=== PATIENT | female | born 1950 | race Caucasian/White ===

== ENCOUNTER 2018-09-04 15:09 | Inpatient (IN) | payer OTHER ==
--- OUTSIDE RECORDS SUMMARY | 2018-09-04 15:12 | XMS REPORT | Clinical Summary ---
:1950 Author Organization [facility] Address [address] [place] [address] Care Team Providers Name Role Phone Lindsey Diaz CHIEF DEPUTY-C Primary Care Provider Allergies Active Allergy Reactions Severity Noted Date Comments Sulfamethoxazole-Trimethoprim 01/25/2012 Causes headaches Medications Medication Sig Dispensed Refills Start Date End Date Status cholecalciferol, Take 1,000 0 Active vitamin D3, Units by (VITAMIN D3) 1,000 mouth daily. unit tablet sertraline (ZOLOFT) Take 25 mg by 0 Active 25 MG tablet mouth daily. omeprazole Take 1 30 capsule 11 05/02/2018 04/19/2019 Active (PriLOSEC) 40 MG capsule (40 capsuleIndications: mg total) by Esophagitis mouth daily for 352 days. sertraline (ZOLOFT) Take 25 mg by 0 02/14/2018 Discontinued 25 MG tablet mouth daily. celecoxib Take 200 mg 0 04/19/2018 Discontinued (CeleBREX) 200 MG by mouth as capsule needed. vitamin B complex Take 1 0 11/08/2017 Discontinued (B COMPLEX 1 ORAL) capsule by mouth daily. shark cartilage Take 1 tablet 0 11/08/2017 Discontinued (SHARK FIN by mouth CARTILAGE) 500 mg daily. capsule GLUCOSAMINE-CONDROI Take by mouth 0 11/08/2017 Discontinued [id number] ORAL daily. omeprazole Take 1 30 capsule 3 12/16/2017 05/02/2018 Discontinued (PriLOSEC) 40 MG capsule (40 capsuleIndications: mg total) by Esophagitis mouth daily. vortioxetine Take 1 tablet 0 04/19/2018 Discontinued (TRINTELLIX) 10 mg by mouth tablet daily. Active Problems No known active problems Encounters Date Type Specialty Care Team Description 05/02/2018 Orders Only Gastroenterology Edie Sierra, Esophagitis INVENTORY AUDITOR 05/02/2018 Telephone Gastroenterology Joyce Christopher, SERGO 04/19/2018 Office Visit Gastroenterology Willa, Status post dilatation of esophageal stricture (Primary Dx); MD Be Gastroesophageal reflux disease with esophagitis 03/01/2018 Hospital Encounter Radiology Willa, Epigastric pain MD Be 02/16/2018 Telephone Gastroenterology Edie Sierra, INVENTORY AUDITOR 02/14/2018 Office Visit Gastroenterology Willa, Epigastric pain (Primary Dx); MD Be S/P dilatation of esophageal stricture 02/02/2018 Surgery Gastroenterology Willa EGD WITH DILATION MD Be 02/02/2018 Anesthesia Event Gastroenterology Joel Padilla MD 02/02/2018 Hospital Encounter GastroenterBe Kaplan MD 01/13/2018 Anesthesia Event GastroenterJoel Saleh MD 01/13/2018 Surgery Gastroenterology Willa EGD W/ DILATION MD Be 01/13/2018 Hospital Encounter GastroenterBe Kaplan MD 12/16/2017 Telephone Gastroenterology Edie Sierra, Esophagitis (Primary Dx) INVENTORY AUDITOR 12/16/2017 Telephone Gastroenterology Edie Sierra, INVENTORY AUDITOR 12/08/2017 Surgery Gastroenterology Willa EDG W/ FLUOROSCOPY AND MD Be DILATION and bx 12/08/2017 Anesthesia Event Gastroenterology Lazaro Kirk MD 12/08/2017 Hospital Encounter Gastroenterosvaldo Crouch, Benign esophageal MD Be stricture 11/25/2017 Telephone GastroenterEdie Collins, INVENTORY AUDITOR 11/24/2017 Hospital Encounter Radiology Willa, Ulcerative esophagitis MD Be 11/21/2017 Orders Only Gastroenterology Arturo, Ulcerative esophagitis AL Baptiste (Primary Dx) 11/17/2017 Telephone Be Landry MD 11/15/2017 Lab Lab Be Crouch MD 11/08/2017 Office Visit Gastroenterology Willa, Iron deficiency anemia, MD Be unspecified iron deficiency anemia type (Primary Dx) after 09/03/2017 Family History Relation Name Status Comments Father Mother Social History Tobacco Use Types Packs/Day Years Used Date Never Smoker Smokeless Tobacco: Never Used Alcohol Use Drinks/Week oz/Week Comments No Sex Assigned at Date Recorded Not on file Job Start Date Occupation Industry Not on file Not on file Not on file Travel History Travel Start Travel End No recent travel history available. Last Filed Vital Signs Vital Sign Reading Time Taken Blood Pressure 174/91 04/19/2018 3:07 PM CDT Pulse 79 04/19/2018 3:07 PM CDT Temperature 36.7 C (98.1 F) 04/19/2018 3:07 PM CDT Respiratory Rate 17 02/02/2018 2:35 PM CDT Oxygen Saturation 95% 02/02/2018 2:35 PM CDT Inhaled Oxygen Concentration - - Weight 84.8 kg (187 lb) 04/19/2018 3:07 PM CDT Height 160 cm (5' 3") 04/19/2018 3:07 PM CDT Body Mass Index 33.13 04/19/2018 3:07 PM CDT Plan of Treatment Health Maintenance Due Date Last Done Comments BREAST CANCER SCREENING 02/19/1998 SHINGLES VACCINES (#1) 02/19/1998 65+ PNEUMOCOCCAL VACCINE (1 of 2 - PCV13) 02/19/2013 PNEUMOCOCCAL POLYSACCHARIDE VACCINE AGE 65 AND OVER 02/19/2013 INFLUENZA VACCINE 01/18/2018 COLON CANCER SCREENING 11/15/2022 11/15/2017 Implants Implanted Type Area Ornamental Metalwork Designer Device Shelf Model / Identifier Expiration Serial / Date Lot Dilator Baln Fxdwr [id number] 6-7-8mm Cre - [id number] Cardiovascular N/A: MICROVASIVE [id number] / Implanted: 12/08/2017 (Quantity not on file) Implants N/A / Dilator Baln Fxdwr [id number] 8-9-10mm Cre - [id number] Surgical N/A: BS ENDOSCOPY [id number] / Implanted: 12/08/2017 (Quantity not on file) Implants; N/A / Expanders; Extenders; Surgical Wires Dilator Baln Fxdwr [id number] 10-11-12mm Cre - [id number] Surgical N/A: BSC ENDOSCOPY [id number] / Implanted: 01/13/2018 (Quantity not on file) Implants; N/A / Expanders; Extenders; Surgical Wires Procedures Procedure Name Priority Date/Time Associated Comments Diagnosis CT ABDOMEN PELVIS W CONTRAST Routine 03/01/2018 Epigastric pain Results for 2:42 PM CDT this procedure are in the results section. ESOPHAGOGASTRODUODENOSCOPY (EGD) 02/02/2018 Esophageal 1:00 PM CDT obstruction ESOPHAGOGASTRODUODENOSCOPY (EGD) 01/13/2018 Esophageal 11:00 AM CDT obstruction Dysphagia SURGICAL PATHOLOGY REQUEST Routine 12/08/2017 Results for 4:11 PM CDT this procedure are in the results section. FL < 1 HOUR Routine 12/08/2017 Benign Results for 2:43 PM CDT esophageal this procedure stricture are in the results section. ESOPHAGOGASTRODUODENOSCOPY (EGD) 12/08/2017 Benign 2:00 PM CDT esophageal stricture FL UPPER GI AND SMALL BOWEL Routine 11/24/2017 Ulcerative Results for 11:26 AM CDT esophagitis this procedure are in the results section. SURGICAL PATHOLOGY REQUEST Routine 11/15/2017 Results for 12:26 PM CDT this procedure are in the results section. after 09/03/[address] Abdomen Pelvis W Contrast (03/01/2018 2:42 PM CDT) Narrative Performed At CT ABDOMEN PELVIS W CONTRAST [facility] CLINICAL INDICATION: R10.13 Epigastric pain, epigastric pains p gastric bypass TECHNIQUE:Multidetector CT imaging of the abdomen and pelvis was performed following the intravenous administration of iodinated contrast with automated exposure control and/or iterative reconstruction techniques to radiation dose. COMPARISON:None FINDINGS: LUNG BASES:Scattered calcified granulomas at lung bases. Heart is mildly enlarged. LIVER:Steatosis without distinct mass. BILIARY:Cholecystectomy is noted with dilatation of the common bile duct to 10 mm but without choledocholithiasis or transition and apparent. SPLEEN:Normal. PANCREAS:Pancreas is mildly atrophic without mass or ductal dilatation. ADRENALS:Normal. KIDNEYS:1.6 cm simple cyst is noted in the interpolar left kidney. GI:There is mild thickening of the distal esophagus consistent with esophagitis with mild paraesophageal infiltration. Changes of gastric bypass are noted with small amount of fluid and gas noted in the gastric remnant. Efferent gastric bypass limb is unremarkable and there are enteric sutures noted in the left upper quadrant. Small bowel loops are normal in caliber without focal wall thickening or findings for leak. Colonic diverticulosis is present without diverticulitis. Appendix is not visualized. VASCULAR:Mild vascular ectasia and atherosclerosis. LYMPH NODES:No enlarged lymph nodes in the abdomen or pelvis. PELVIS:No lymphadenopathy or abnormal fluid collection.Uterus and notable for a 1.7 cm fluid density cystic lesion in the left ovary of indeterminate significance. Consider ultrasound follow-up. BONES:Mild to moderate spondylosis is present. OTHER: IMPRESSION: 1. Prominent thickening of the distal esophagus consistent with esophagitis. Consider endoscopic or fluoroscopic follow-up. 2. Status post gastric bypass surgery without findings for complication. 3. Indeterminate 1.7 cm left ovarian cystic lesions; ultrasound follow-up recommended. 4. Other incidental lencho findings as described including mild hepatic steatosis, left renal cyst, spondylosis, diverticulosis and other findings as detailed. Thank you for allowing us to participate in the care of your patient. [facility]-[id number] Procedure Note [facility], Radiology Results Incoming - 03/01/2018 3:[address] ABDOMEN PELVIS W CONTRAST CLINICAL INDICATION: R10.13 Epigastric pain, epigastric pain s p gastric bypass TECHNIQUE: Multidetector CT imaging of the abdomen and pelvis was performed following the intravenous administration of iodinated contrast with automated exposure control and/or iterative reconstruction techniques to radiation dose. COMPARISON: None FINDINGS: LUNG BASES: Scattered calcified granulomas at lung bases. Heart is mildly enlarged. LIVER: Steatosis without distinct mass. BILIARY: Cholecystectomy is noted with dilatation of the common bile duct to 10 mm but without choledocholithiasis or transition and apparent. SPLEEN: Normal. PANCREAS: Pancreas is mildly atrophic without mass or ductal dilatation. ADRENALS: Normal. KIDNEYS: 1.6 cm simple cyst is noted in the interpolar left kidney. GI: There is mild thickening of the distal esophagus consistent with esophagitis with mild paraesophageal infiltration. Changes of gastric bypass are noted with small amount of fluid and gas noted in the gastric remnant. Efferent gastric bypass limb is unremarkable and there are enteric sutures noted in the left upper quadrant. Small bowel loops are normal in caliber without focal wall thickening or findings for leak. Colonic diverticulosis is present without diverticulitis. Appendix is not visualized. VASCULAR: Mild vascular ectasia and atherosclerosis. LYMPH NODES: No enlarged lymph nodes in the abdomen or pelvis. PELVIS: No lymphadenopathy or abnormal fluid collection. Uterus and notable for a 1.7 cm fluid density cystic lesion in the left ovary of indeterminate significance. Consider ultrasound follow-up. BONES: Mild to moderate spondylosis is present. OTHER: IMPRESSION: 1. Prominent thickening of the distal esophagus consistent with esophagitis. Consider endoscopic or fluoroscopic follow-up. 2. Status post gastric bypass surgery without findings for complication. 3. Indeterminate 1.7 cm left ovarian cystic lesions; ultrasound follow-up recommended. 4. Other incidental lencho findings as described including mild hepatic steatosis , left renal cyst, spondylosis, diverticulosis and other findings as detailed. Thank you for allowing us to participate in the care of your patient. [facility]-[id number] Performing Organization Address City/[facility]/Zipcode Phone Number [facility] [address] [place] [address] Surgical pathology request (12/08/2017 4:11 PM CDT)Only the most recent of2 resultswithin the time period is included. [facility] DEPARTMENT OF PATHOLOGY AND GENOMIC MEDICINE Surgical pathology report See link below for PDF [facility] DEPARTMENT OF Lab Report PATHOLOGY AND GENOMIC MEDICINE Result status This is Final Report to [facility] DEPARTMENT OF [id number] PATHOLOGY AND GENOMIC MEDICINE Performing Organization Address [facility] Phone Number [facility] DEPARTMENT OF PATHOLOGY AND [address] [place] [address] GENOMIC MEDICINE FL < 1 Hour (12/08/2017 2:43 PM CDT) Narrative Performed At EXAMINATION:FL 1 HOUR [facility] CLINICAL HISTORY:intraoperative IMPRESSION: Fluoroscopy was provided. No radiologist present.Please see procedure report for discussion of procedure, findings. [facility]-[id number] Procedure Note Interface, Radiology Results Incoming - 12/08/2017 3:12 PM CDT EXAMINATION: FL 1 HOUR CLINICAL HISTORY: intraoperative IMPRESSION: Fluoroscopy was provided. No radiologist present. Please see procedure report for discussion of procedure, findings. [facility]-[id number] Performing Organization Address City/[facility] Phone Number [facility] [address] [place] [address] [place] Upper GI and Small Bowel Series (11/24/2017 11:26 AM CDT) Narrative Performed At EXAMINATION:FL UPPER GI AND SMALL BOWEL [facility] CLINICAL HISTORY:K22.10 Ulcer of esophagus without bleeding, Ulcerative esophagitis. COMPARISON:None. TECHNIQUE:UPPER GI SERIES AND SMALL BOWEL FOLLOW-THROUGH was performed with effervescent granules and barium. FLUOROSCOPIC TIME:2 minutes, 38 images IMPRESSION: Esophagus:And esophageal stricture of approximately 75% is present at the GE junction. It is approximately 2 cm in length. The esophagus proximal to this area is diffusely dilated with tertiary contractions present compatible with esophageal dysmotility. Mucosal thickening is present distally suggestive of esophagitis. No definite focal masses are present Stomach:Postoperative changes involving the stomach compatible with a gastric bypass. Anastomosis is patent. No masses or strictures present. No extravasation. Proximal small bowel is not dilated. No masses or strictures present [id number] Procedure Note Interface, Radiology Results Incoming - 11/24/2017 1:03 PM CDT EXAMINATION: FL UPPER GI AND SMALL BOWEL CLINICAL HISTORY: K22.10 Ulcer of esophagus without bleeding, Ulcerative esophagitis. COMPARISON: None. TECHNIQUE: UPPER GI SERIES AND SMALL BOWEL FOLLOW-THROUGH was performed with effervescent granules and barium. FLUOROSCOPIC TIME: 2 minutes, 38 images IMPRESSION: Esophagus: And esophageal stricture of approximately 75% is present at the GE junction. It is approximately 2 cm in length. The esophagus proximal to this area is diffusely dilated with tertiary contractions present compatible with esophageal dysmotility. Mucosal thickening is present distally suggestive of esophagitis. No definite focal masses are present Stomach: Postoperative changes involving the stomach compatible with a gastric bypass. Anastomosis is patent. No masses or strictures present. No extravasation. Proximal small bowel is not dilated. No masses or strictures present [id number] Performing Organization Address City/State/Zipcode Phone Number [facility] [address] [place] [address] after 09/03/2017 Insurance Payer Benefit Plan / Group Subscriber ID Type Phone Address MEDICARE MEDICARE PART A AND B xxxxxxxxxx Medicare [facility] xxxxxxxxxx Commercial INSURANCE INSURANCE (Home) [place] [address] Advance Directives Patient has advance care planning documents on file. For more information, please contact:[facility] [address] [place] [address]
--- OUTSIDE RECORDS SUMMARY | 2018-09-04 15:12 | XMS REPORT ---
:1950 [facility] Address [address] Guzmán [address] [place] [address] Care Team Providers Name Role Phone Unavailable Unavailable Unavailable Payers Payer Name Policy Type Policy Number Effective Date Expiration Date Problems This patient has no known problems. Allergies, Adverse Reactions, Alerts This patient has no known allergies or adverse reactions. Medications This patient has no known medications.
[2018-09-04 16:12] LABS: Absolute Lymphocytes (CBC) 0.8 K/uL (0.7-4.9); Absolute Monocytes 0.7 K/uL (0.1-1.3); Absolute Neutrophil 6.2 K/uL (1.8-8.0); Basophils % 0.1 % (0-1.3); Eosinophils % 0.7 % (0-4.4); Hematocrit 37.7 % (36.0-45.0); Lymphocytes % 9.8 % (15.3-44.8); MPV 9.3 fL (7.6-11.3); Monocytes % 9.6 % (3.3-12.3); RBC Red Blood Cell Count 4.49 M/uL (3.86-4.86)
[2018-09-04 16:13] LABS: Protime INR 1.09
[2018-09-04 16:36] LABS: ALT/SGPT 26 U/L (12-78); AST/SGOT 25 U/L (15-37); Albumin 3.2 g/dL (3.4-5.0); Alkaline Phosphatase 149 U/L (45-117); BUN Blood Urea Nitrogen 7 mg/dL (7-18); Bicarbonate 28 mmol/L (21-32); Bilirubin Direct 0.2 mg/dL (0-0.2); Bilirubin Total 0.8 mg/dL (0.2-1.0); CKMB Creatine Kinase MB 5.5 ng/mL (0.3-3.6); Creatine Phosphokinase 558 U/L (26-192); Glucose Level 110 mg/dL (74-106); Magnesium 1.9 mg/dL (1.8-2.4); NT PRO-BNP 300 pg/mL (<125); Potassium 3.6 mmol/L (3.5-5.1); Protein, Total 6.7 g/dL (6.4-8.2); Sodium Level 139 mmol/L (136-145); Troponin (Emerg Dept Use Only) < 0.02 ng/mL (0.0-0.045)
--- NOTE | 2018-09-04 17:06 | RAD REPORT ---
EXAM DESCRIPTION: RAD - Femur Left - 09/04/2018 4:57 pm CLINICAL HISTORY: fall;Pain Trauma, fall, pain COMPARISON: None FINDINGS: AP pelvis, left hip and left femur- multiple projections are submitted Subcapital fracture is present proximal left femur with varus angulation. No additional fracture or d islocation seen.
--- NOTE | 2018-09-04 17:08 | RAD REPORT ---
EXAM DESCRIPTION: RAD - Chest Single View - 09/04/2018 4:56 pm CLINICAL HISTORY: fall Chest pain. COMPARISON: CHEST PA AND LAT 2 VIEW dated 01/08/2012 FINDINGS: Portable technique limits examination quality. The lungs are underinflated but grossly clear. The heart is normal in size. No displaced fractures. IMPRESSION: No acute intrathoracic process suspected.
[2018-09-04] MEDS ORDERED: MORPHINE 2 MG/ML SYR ONE (17:16)
[2018-09-04] MEDS ORDERED: ONDANSETRON 4 MG/2 ML VIAL ONE (17:16)
[2018-09-04] MEDS ORDERED: NA CHLORIDE 0.9% 1,000 ML ONE (17:17)
--- NOTE | 2018-09-04 18:10 | ER ---
Nurse's Notes [facility] Name: Vanessa Ahmadi Age: 68 yrs Sex: Female : 1950 Arrival Date: 09/04/2018 Time: 15:12 Bed 26 Private MD: Diagnosis: Fracture of unspecified part of neck of left femur;Fall on same level from slipping, tripping and stumbling Presentation: 09/04 15:12 Presenting complaint: EMS states: PATIENT FELL YESTERDAY BACKWARDS. HIT HER LEFT HIP rv AND LEFT LEG. HURTING TODAY, WAS NOT ABLE TO WALK. NO LOC. NOT ON BLOOD THINNERS. ABLE TO MOVE BOTH FEET AND TOES. WITH HISTORY OF FIBROMYALGIA AND ARTHRITIS. ON HYDROCODONE PRN AT HOME. GIVEN FENTANYL, TOTAL OF 100MCG, BY EMS. Transition of care: patient was not received from another setting of care. Onset of symptoms was September 04, 2018 at 08:00. Risk Assessment: Do you want to hurt yourself or someone else? Patient reports no desire to harm self or others. Initial Sepsis Screen: Does the patient meet any 2 criteria? No. Patient's initial sepsis screen is negative. Does the patient have a suspected source of infection? No. Patient's initial sepsis screen is negative. Care prior to arrival: None. 15:12 Method Of Arrival: EMS: [facility] rv 15:12 Acuity: REGGIE 3 rv Triage Assessment: 15:20 General: Appears in no apparent distress. comfortable, Behavior is calm, cooperative. rv Pain: Complains of pain in left leg, Pain currently is 1 out of 10 on a pain scale. at worst was 8 out of 10 on a pain scale. Pain began 1 day ago. EENT: No signs and/or symptoms were reported regarding the EENT system. Neuro: Level of Consciousness is awake, alert, obeys commands, Oriented to person, place, time, situation. Cardiovascular: Capillary refill < 3 seconds. Respiratory: Airway is patent. GI: No signs and/or symptoms were reported involving the gastrointestinal system. : No signs and/or symptoms were reported regarding the genitourinary system. Derm: Skin is intact. Musculoskeletal: Range of motion: limited in left hip and left knee Reports pain in left leg. Historical: - Allergies: 15:19 Bactrim; rv - Home Meds: 15:19 omeprazole 40 mg Oral cpDR 1 cap four times a day [Active]; Hydrocodone-Acetaminophen rv Oral 1 cap as needed [Active]; Zoloft 25 mg Oral tab 1 tab once daily [Active]; - PMHx: 15:19 Fibromyalgia; Arthritis; rv - PSHx: 15:19 Gastric Bypass; rv 15:20 Cholecystectomy; RIGHT OVARY REMOVED; rv - Immunization history:: Adult Immunizations up to date, Flu vaccine is not up to date. - Social history:: Smoking status: Patient/guardian denies using tobacco, never smoked. - Ebola Screening: : Patient negative for fever greater than or equal to 101.5 degrees Fahrenheit, and additional compatible Ebola Virus Disease symptoms Patient denies exposure to infectious person Patient denies travel to an Ebola-affected area in the 21 days before illness onset. Screenin:22 Abuse screen: Denies threats or abuse. Denies injuries from another. Nutritional rv screening: No deficits noted. Tuberculosis screening: No symptoms or risk factors identified. Fall Risk No fall in past 12 months (0 pts). Secondary diagnosis (15 points) impaired mobility, No IV (0 pts). Ambulatory Aid- None/Bed Rest/Nurse Assist (0 pts). Gait- Impaired (20 pts.). Mental Status- Oriented to own ability (0 pts). Total Ramires Fall Scale indicates Low Risk Score (25-44 pts). Fall prevention measures have been instituted. Side Rails Up X 2 Placed close to Nursing Station Frequent Obs/Assesments occuring As available Patient and Family Educated on Fall Prevention Program and strategies. Assessment: 18:29 Reassessment: Patient appears in no apparent distress at this time. Patient and/or rv family updated on plan of care and expected duration. Pain level reassessed. Patient is alert, oriented x 3, equal unlabored respirations, skin warm/dry/pink. Patient states feeling better. Patient states symptoms have improved. Vital Signs: 15:13 BP 160 / 86; Pulse 88; Resp 20; Temp 98.8; Pulse Ox 96% ; lt1 15:19 Weight 79.38 kg; Height 5 ft. 3 in. (160.02 cm); Pain 1/10; rv 16:00 BP 163 / 86 LA; Pulse 85; Resp 19 S; Pulse Ox 95% on R/A; rv 17:00 BP 129 / 105 LA; Pulse 85; Resp 17 S; Pulse Ox 96% on R/A; rv 17:30 BP 146 / 95 LA; Pulse 93; Resp 16 S; Pulse Ox 95% on R/A; rv 18:00 BP 140 / 58 LA; Pulse 87; Resp 18 S; Pulse Ox 95% on R/A; rv 18:30 BP 145 / 62; Pulse 86; Resp 19; Pulse Ox 96% ; rv 19:00 BP 138 / 64; Pulse 17; Resp 16 S; Pulse Ox 95% on R/A; rv 19:30 BP 140 / 62; Pulse 82; Resp 18 S; Pulse Ox 96% on R/A; rv 15:19 Body Mass Index 31.00 (79.38 kg, 160.02 cm) rv ED Course: 15:12 Patient arrived in ED. rv 15:15 Triage completed. rv 15:20 Hermelindo Rosa PA is PHCP. cp 15:20 Makenna Quiroz MD is Attending Physician. cp 15:23 Patient has correct armband on for positive identification. Bed in low position. Call rv light in reach. Side rails up X2. Pulse ox on. NIBP on. 15:23 Patient placed in an exam room, on a stretcher, on pulse oximetry, Patient notified of rv wait time. 15:30 Maintain EMS IV. Dressing intact. Good blood return noted. Site clean \T\ dry. Gauge \T\ rv site: G20 RIGHT AC. 16:57 XRAY Pelvis In Process Unspecified. EDMS 16:57 XRAY Hip LEFT 2 view In Process Unspecified. EDMS 16:57 XRAY Femur LEFT In Process Unspecified. EDMS 16:57 XRAY Chest (1 view) In Process Unspecified. EDMS 17:12 EKG done, by electrical service technician. reviewed by Hermelindo HERNANDEZ. sm3 18:07 Ramón Guillen DO is Hospitalizing Provider. cp 18:25 [place] cath inserted, using sterile technique, 18 Fr., by ca, balloon inflated, to ca1 gravity drainage. 19:06 Autumn Palomo, SERGO is Primary Nurse. ca1 20:01 No provider procedures requiring assistance completed. Patient admitted, IV remains in rv place. intact. Administered Medications: 17:26 Drug: morphine 2 mg Route: IVP; Site: right antecubital; rv 18:15 Follow up: Response: Pain is decreased rv 17:26 Drug: Zofran 4 mg Route: IVP; Site: right antecubital; rv 18:14 Follow up: Response: No adverse reaction rv Outcome: 18:09 Decision to Hospitalize by Provider. cp 20:02 Admitted to Med/surg accompanied by tech, via stretcher, room 225, with chart, Report rv called to MUKUL TROTTER 20:02 Condition: good 20:02 Instructed on the need for admit, Demonstrated understanding of instructions. 20:10 Patient left the ED. rv Signatures: Dispatcher [employer] EDMS Hermelindo Rosa PA PA cp Montes, Shakira 3 Nader Tucker RN RN rv Autumn Palomo RN RN ca1 Marianela Grace 1 Corrections: (The following items were deleted from the chart) 15:23 15:22 Fall Risk None identified. rv rv
--- NOTE | 2018-09-04 18:10 | EDPHYS ---
Physician Documentation [facility] Name: Vanessa Ahmadi Age: 68 yrs Sex: Female : 1950 Arrival Date: 09/04/2018 Time: 15:12 Bed 26 Private MD: ED Physician Makenna Quiroz HPI: 09/04 15:55 This 68 yrs old Female presents to ER via EMS with complaints of fall. cp 15:55 Details of fall: The patient fell from an upright position, while walking. Onset: The cp symptoms/episode began/occurred yesterday. Associated injuries: The patient sustained left hip, decreased range of motion, painful injury. Severity of symptoms: in the emergency department the symptoms have improved, mildly. Historical: - Allergies: 15:19 Bactrim; rv - Home Meds: 15:19 omeprazole 40 mg Oral cpDR 1 cap four times a day [Active]; Hydrocodone-Acetaminophen rv Oral 1 cap as needed [Active]; Zoloft 25 mg Oral tab 1 tab once daily [Active]; - PMHx: 15:19 Fibromyalgia; Arthritis; rv - PSHx: 15:19 Gastric Bypass; rv 15:20 Cholecystectomy; RIGHT OVARY REMOVED; rv - Immunization history:: Adult Immunizations up to date, Flu vaccine is not up to date. - Social history:: Smoking status: Patient/guardian denies using tobacco, never smoked. - Ebola Screening: : Patient negative for fever greater than or equal to 101.5 degrees Fahrenheit, and additional compatible Ebola Virus Disease symptoms Patient denies exposure to infectious person Patient denies travel to an Ebola-affected area in the 21 days before illness onset. ROS: 15:56 Eyes: Negative for injury, pain, redness, and discharge. cp 15:56 Constitutional: Negative for body aches, chills, fever, poor PO intake. 15:56 ENT: Negative for drainage from ear(s), ear pain, sore throat, difficulty swallowing, difficulty handling secretions. 15:56 Neck: Negative for pain with movement, pain at rest, stiffness. 15:56 Cardiovascular: Negative for chest pain, palpitations. 15:56 Respiratory: Negative for cough, shortness of breath, wheezing. 15:56 Abdomen/GI: Negative for abdominal pain, nausea, vomiting, and diarrhea, black/tarry stool, rectal bleeding. 15:56 MS/extremity: Positive for decreased range of motion, pain, tenderness, of the left hip. 15:56 Neuro: Negative for altered mental status, dizziness, headache, loss of consciousness, syncope. Exam: 16:05 Constitutional: The patient appears in no acute distress, alert, awake, cp non-diaphoretic, non-toxic, well developed, well nourished. 16:05 Head/Face: Normocephalic, atraumatic. cp 16:05 Eyes: Periorbital structures: appear normal, Conjunctiva: normal, no exudate, no injection, Sclera: no appreciated abnormality, Lids and lashes: appear normal, bilaterally. 16:05 ENT: External ear(s): are unremarkable, Nose: is normal, Mouth: Lips: moist, Oral mucosa: moist, Posterior pharynx: Airway: no evidence of obstruction, patent, Voice: is normal. 16:05 Neck: C-spine: vertebral tenderness, is not appreciated, crepitus, is not appreciated, ROM/movement: is normal, is supple, without pain, no range of motions limitations, no nuchal rigidity. 16:05 Chest/axilla: Inspection: normal, Palpation: is normal, no crepitus, no tenderness. 16:05 Cardiovascular: Rate: normal, Rhythm: regular, Pulses: Pulses are 2+ in right radial artery, right dorsalis pedis artery, left radial artery and left dorsalis pedis artery. Edema: is not appreciated, JVD: is not appreciated. 16:05 Respiratory: the patient does not display signs of respiratory distress, Respirations: normal, no use of accessory muscles, no retractions, no splinting, no tachypnea, Breath sounds: decreased breath sounds, are not appreciated, stridor, is not appreciated, wheezing: is not appreciated. 16:05 Abdomen/GI: Inspection: abdomen appears normal, Bowel sounds: active, all quadrants, Palpation: abdomen is soft and non-tender, in all quadrants. 16:05 Back: pain, that is mild. 16:05 Musculoskeletal/extremity: Extremities: grossly normal except: noted in the left hip: decreased ROM, deformity, pain, tenderness, ROM: limited passive range of motion due to pain, in the left hip, Perfusion: the extremity is normally perfused throughout, Sensation intact. 16:05 Skin: cellulitis, is not appreciated, no rash present. 16:05 Neuro: Orientation: to person, place \T\ time. Mentation: is normal. 17:24 ECG was reviewed by the Attending Physician. Vital Signs: 15:13 BP 160 / 86; Pulse 88; Resp 20; Temp 98.8; Pulse Ox 96% ; lt1 15:19 Weight 79.38 kg; Height 5 ft. 3 in. (160.02 cm); Pain 1/10; rv 16:00 BP 163 / 86 LA; Pulse 85; Resp 19 S; Pulse Ox 95% on R/A; rv 17:00 BP 129 / 105 LA; Pulse 85; Resp 17 S; Pulse Ox 96% on R/A; rv 17:30 BP 146 / 95 LA; Pulse 93; Resp 16 S; Pulse Ox 95% on R/A; rv 18:00 BP 140 / 58 LA; Pulse 87; Resp 18 S; Pulse Ox 95% on R/A; rv 18:30 BP 145 / 62; Pulse 86; Resp 19; Pulse Ox 96% ; rv 19:00 BP 138 / 64; Pulse 17; Resp 16 S; Pulse Ox 95% on R/A; rv 19:30 BP 140 / 62; Pulse 82; Resp 18 S; Pulse Ox 96% on R/A; rv 15:19 Body Mass Index 31.00 (79.38 kg, 160.02 cm) rv MDM: 15:20 Patient medically screened. 17:02 Data reviewed: vital signs, nurses notes, radiologic studies, plain films. 17:02 Physician consultation: Ramón Guillen DO was called at 17:02, was contacted at 17:02, regarding admission, to the medical/surgical unit. patient's condition. 18:05 Physician consultation: Prince Sol MD was called at 18:05, was contacted at 18:06, regarding consult, patient's condition, would like admission per Dr. Ramón Guillen DO. 09/04 15:42 Order name: Basic Metabolic Panel cp 09/04 15:42 Order name: CBC with Diff cp 09/04 15:42 Order name: LFT's cp 09/04 15:42 Order name: Magnesium cp 09/04 15:42 Order name: NT PRO-BNP cp 09/04 15:42 Order name: PT-INR; Complete Time: 16:28 cp 09/04 15:42 Order name: Troponin (emerg Dept Use Only) cp 09/04 15:42 Order name: CK cp 09/04 15:42 Order name: Ckmb cp 09/04 15:42 Order name: XRAY Pelvis cp 09/04 15:42 Order name: Basic Metabolic Panel EDMS 09/04 15:42 Order name: CBC with Automated Diff; Complete Time: 16:28 EDMS 09/04 16:29 Interpretation: Normal except: MCV 84.0; LIZBETH% 79.8; LYM% 9.8. cp 09/04 15:42 Order name: Liver (Hepatic) Function EDMS 09/04 15:42 Order name: Magnesium EDMS 09/04 15:42 Order name: EKG; Complete Time: 15:43 cp 09/04 15:42 Order name: Cardiac monitoring; Complete Time: 16:16 cp 09/04 15:42 Order name: EKG - Nurse/Tech; Complete Time: 17:03 cp 09/04 15:42 Order name: IV Saline Lock; Complete Time: 16:16 cp 09/04 15:42 Order name: Labs collected and sent; Complete Time: 16:16 cp 09/04 15:42 Order name: O2 Per Protocol; Complete Time: 16:16 cp 09/04 15:42 Order name: O2 Sat Monitoring; Complete Time: 16:16 cp 09/04 15:42 Order name: XRAY Hip LEFT 2 view cp 09/04 15:42 Order name: XRAY Femur LEFT cp 09/04 15:42 Order name: XRAY Chest (1 view) cp 09/04 18:03 Order name: Diet Regular; Complete Time: 18:04 cp 09/04 18:09 Order name: [place]; Complete Time: 19:08 cp EC:24 Rate is 85 beats/min. Rhythm is regular. NC interval is normal. QRS interval is normal. cp QT interval is normal. Interpreted by me. Reviewed by me. Administered Medications: 17:26 Drug: morphine 2 mg Route: IVP; Site: right antecubital; rv 18:15 Follow up: Response: Pain is decreased rv 17:26 Drug: Zofran 4 mg Route: IVP; Site: right antecubital; rv 18:14 Follow up: Response: No adverse reaction rv Disposition: 21:16 Co-signature as Attending Physician, Makenna Quiroz MD. ma2 Disposition: 09/04/18 18:09 Hospitalization ordered by Ramón Guillen for Inpatient Admission. Preliminary diagnosis are Fracture of unspecified part of neck of left femur, Fall on same level from slipping, tripping and stumbling. - Bed requested for Telemetry/MedSurg (Inpatient). - Status is Inpatient Admission. rv - Condition is Stable. - Problem is new. - Symptoms have improved. UTI on Admission? No Signatures: Dispatcher [employer] EDAngela Monte RN RN dw Hermelindo Rosa PA PA cp Alzahri, Mohammad, MD MD ma2 Nader Tucker RN RN rv Corrections: (The following items were deleted from the chart) 18:37 18:09 Hospitalization Ordered by Ramón Guillen DO for Inpatient Admission. Preliminary dw diagnosis is Fracture of unspecified part of neck of left femur; Fall on same level from slipping, tripping and stumbling. Bed requested for Telemetry/MedSurg (Inpatient). Status is Inpatient Admission. Condition is Stable. Problem is new. Symptoms have improved. UTI on Admission? No. cp 20:10 18:37 09/04/2018 18:09 Hospitalization Ordered by Ramón Guillen DO for Inpatient rv Admission. Preliminary diagnosis is Fracture of unspecified part of neck of left femur; Fall on same level from slipping, tripping and stumbling. Bed requested for Telemetry/MedSurg (Inpatient). Status is Inpatient Admission. Condition is Stable. Problem is new. Symptoms have improved. UTI on Admission? No. dw
[2018-09-04] MEDS ORDERED: TRAMADOL HCL 50 MG TAB PO PRN (20:16)
[2018-09-04] MEDS ORDERED: ONDANSETRON 4 MG/2 ML VIAL IV PRN (20:16)
[2018-09-04] MEDS ORDERED: ACETAMINOPHEN 500 MG TAB PO PRN (20:16)
[2018-09-04] MEDS: NA CHLORIDE 0.9% 1,000 ML IV SCH (20:57)
[2018-09-04] MEDS: FAMOTIDINE 20 MG TAB PO SCH (20:58)
[2018-09-04] MEDS: HYDROCODONE/APAP 7.5/325 MG TAB PO PRN (20:58)
[2018-09-04 21:30] VITALS: BMI 30.9
--- NOTE | 2018-09-04 22:20 | P.HP ---
Certification for Inpatient Patient admitted to: Inpatient With expected LOS: >2 Midnights Practitioner: I am a practitioner with admitting privileges, knowledge of patient current condition, hospital course, and medical plan of care. Services: Services provided to patient in accordance with Admission requirements found in Title 42 Section 412.3 of the Code of Federal Regulations Patient History Date of Service: 09/04/18 Reason for admission: hip fracture History of Present Illness: Ms Ahmadi is a 68 years old woman with history of fibromyalgia and arthritis, who unfortunately fell yesterday landing over her left side. The patient denied any palpitations of dizziness prior the fall. She also denied any head trauma. She remain on the floor initially awaiting the pain goes away, however, when she wanted to bear weight on her left leg she couldn't. The patient. Since her pain did not relieved, she came to ED for evaluation. Pelvic XR is consistent left subcapital fracture. Allergies No Known Allergies Allergy (Verified 09/04/18 20:53) Home Medications: Hydrocodone/Acetaminophen [[place] 10-325 Tablet] 1 each PO Q8HP PRN 09/04/18 Omeprazole [Prilosec] 40 mg PO DAILY 09/04/18 Sertraline [Zoloft] 25 mg PO BEDTIME 09/04/18 - Past Medical/Surgical History Has patient received pneumonia vaccine in the past: No Diabetic: No -: Polycystic Ovaries -: Fibromyalgia -: Arthritis -: DNC -: Cholecystectomy -: Gastric Bypass Surgery -: Gastric Sergmentation - Family History Family History: Reviewed- Non-Contributory - Family History Mother -: Hypertension, Diabetes - Social History Smoking Status: Never smoker Alcohol use: Yes CD- Drugs: No Caffeine use: Yes Place of Residence: Home Review of Systems 10-point ROS is otherwise unremarkable Physical Examination - Vital Signs Temperature: 98.8 F Blood Pressure: 140/62 Pulse: 82 Respirations: 18 - Physical Exam General: Alert, In no apparent distress HEENT: Atraumatic, PERRLA, Mucous membr. moist/pink, EOMI, Sclerae nonicteric Neck: Supple, 2+ carotid pulse no bruit, No LAD, Without JVD or thyroid abnormality Respiratory: Clear to auscultation bilaterally, Normal air movement Cardiovascular: Regular rate/rhythm, Normal S1 S2, Systolic murmur (3/6 on aortic area) Gastrointestinal: Normal bowel sounds, No tenderness Musculoskeletal: Tenderness (tenderness to movement on the left hip.) Integumentary: No rashes Neurological: Normal speech, Normal strength at 5/5 x4 extr, Normal tone, Normal affect Lymphatics: No axilla or inguinal lymphadenopathy - Studies Laboratory Data (last 24 hrs) 09/04/18 15:55: PT 12.8 H, INR 1.09 09/04/18 15:55: WBC 7.8, Hgb 12.5, Hct 37.7, Plt Count 192 09/04/18 15:55: Sodium 139, Potassium 3.6, BUN 7, Creatinine 0.49 L, Glucose 110 H, Magnesium 1.9, Total Bilirubin 0.8, AST 25, ALT 26, Alkaline Phosphatase 149 H Assessment and Plan - Problems (Diagnosis) (1) Closed left hip fracture Current Visit: Yes Status: Acute Qualifiers: Encounter type: initial encounter Qualified Code(s): S72.002A - Fracture of unspecified part of neck of left femur, initial encounter for closed fracture (2) Systolic murmur Current Visit: Yes Status: Acute (3) Fibromyalgia Current Visit: Yes Status: Acute (4) Arthritis Current Visit: Yes Status: Acute - Plan Will admit the patient due to left hip fracture. Will keep the patient NPO after MN. Will order ECHO due to systolic murmur, not addressed so far, despite the patient says that it was diagnosed about [address] Sol. - Advance Directives Does patient have a Living Will: No Does patient have a Durable POA for Healthcare: No - Code Status/Comfort Care Code Status Assessed: Yes Code Status: Full Code
[2018-09-04 23:46] LABS: Urine Appearance CLEAR; Urine Bilirubin NEGATIVE (NEG); Urine Blood NEGATIVE (NEG); Urine Color YELLOW; Urine Glucose NEGATIVE (NEG); Urine Protein NEGATIVE (NEG)
[2018-09-04 23:59] LABS: Urine Microscopic Reflex ORDER UMIC
[2018-09-05 00:39] LABS: Urine RBC NONE SEEN /HPF (NONE SEEN)
[2018-09-05 00:40] LABS: Urine Bacteria <20 /HPF (<20); Urine Culture Reflex Order REFLEXED
[2018-09-05] MEDS: NA CHLORIDE 0.9% 1,000 ML IV SCH ×2 (04:56→16:05)
[2018-09-05] MEDS: FENTANYL CITR 100 MCG/2 ML IV PRN ×3 (04:57→18:30)
[2018-09-05 05:17] LABS: Absolute Monocytes 0.8 K/uL (0.1-1.3); Absolute Neutrophil 4.2 K/uL (1.8-8.0); Basophils % 0.5 % (0-1.3); Eosinophils % 1.7 % (0-4.4); Hematocrit 37.7 % (36.0-45.0); Lymphocytes % 16.5 % (15.3-44.8); MPV 9.8 fL (7.6-11.3); Monocytes % 12.2 % (3.3-12.3); RBC Red Blood Cell Count 4.44 M/uL (3.86-4.86)
[2018-09-05 05:38] LABS: ALT/SGPT 21 U/L (12-78); AST/SGOT 20 U/L (15-37); Alkaline Phosphatase 136 U/L (45-117); BUN Blood Urea Nitrogen 9 mg/dL (7-18); Bicarbonate 29 mmol/L (21-32); Bilirubin Total 0.8 mg/dL (0.2-1.0); Creatine Phosphokinase 392 U/L (26-192); Glucose Level 100 mg/dL (74-106); Magnesium 1.9 mg/dL (1.8-2.4); Potassium 3.7 mmol/L (3.5-5.1); Protein, Total 6.4 g/dL (6.4-8.2); Sodium Level 141 mmol/L (136-145)
--- NOTE | 2018-09-05 05:58 | EKG ---
Test Date: 2018-09-04 Test Time: 17:01:02 Treatment Plant Operator: JUANITA MEASUREMENT RESULTS: Intervals: Rate: 85 OK: 156 QRSD: 84 QT: 378 QTc: 449 Mcgraw: P: 55 OK: 156 QRS: 13 T: 36 INTERPRETIVE STATEMENTS: Normal sinus rhythm with sinus arrhythmia Normal ECG Compared to ECG 01/08/2012 13:49:46 Left ventricular hypertrophy no longer present Electronically Signed On 09-05-18 05:57:53 CDT by Heath Patricio
[2018-09-05] MEDS ORDERED: KCL 20 MEQ/100 mL IVPB 20 MEQ/100 ML BAG IV SCH (06:00)
[2018-09-05] MEDS: FAMOTIDINE 20 MG TAB PO SCH ×2 (08:50→20:39)
[2018-09-05] MEDS: ENOXAPARIN 40 MG/0.4 ML SQ SCH ×2 (08:51→14:49)
[2018-09-05] MEDS: HYDROCODONE/APAP 7.5/325 MG TAB PO PRN ×2 (09:04→16:08)
--- NOTE | 2018-09-05 10:08 | RAD REPORT ---
EXAM DESCRIPTION: RAD - Pelvis - 09/04/2018 4:56 pm CLINICAL HISTORY: Fall;Pain Trauma, fall, pain COMPARISON: None FINDINGS: AP pelvis, left hip and left femur- multiple projections are submitted Subcapital fracture is present proximal left femur with varus angulation. No additional fracture or d islocation seen.
--- NOTE | 2018-09-05 10:08 | RAD REPORT ---
EXAM DESCRIPTION: RAD - Hip Left 2 View - 09/04/2018 4:57 pm CLINICAL HISTORY: Fall;Pain Trauma, fall, pain COMPARISON: None FINDINGS: AP pelvis, left hip and left femur- multiple projections are submitted Subcapital fracture is present proximal left femur with varus angulation. No additional fracture or d islocation seen.
[2018-09-05] MEDS ORDERED: HYDRALAZINE HCL 20 MG/ML VIAL IV PRN (10:24)
--- NOTE | 2018-09-05 10:24 | P.PN ---
Subjective Date of Service: 09/05/18 Primary Care Provider: Lindsey Diaz NP Chief Complaint: hip fracture Subjective: Doing well Physical Examination - Vital Signs Temperature: 99 F Blood Pressure: 180/79 Pulse: 98 Respirations: 18 Pulse Ox (%): 93 - Physical Exam General: Alert, In no apparent distress, Oriented x3, Cooperative HEENT: Atraumatic Neck: Supple Respiratory: Clear to auscultation bilaterally, Normal air movement Cardiovascular: Normal pulses, Regular rate/rhythm, Systolic murmur Gastrointestinal: Normal bowel sounds, Soft and benign, Non-distended, No tenderness, No masses, No rebound, No guarding Musculoskeletal: No erythema, No tenderness, No warmth Integumentary: No erythema, No warmth, No cyanosis Neurological: Normal speech, Normal strength at 5/5 x4 extr, Normal tone, Normal affect - Studies Laboratory Data (last 24 hrs) 09/04/18 15:55: PT 12.8 H, INR 1.09 09/04/18 15:55: WBC 7.8, Hgb 12.5, Hct 37.7, Plt Count 192 09/04/18 15:55: Sodium 139, Potassium 3.6, BUN 7, Creatinine 0.49 L, Glucose 110 H, Magnesium 1.9, Total Bilirubin 0.8, AST 25, ALT 26, Alkaline Phosphatase 149 H Medications List Reviewed: Yes Assessment & Plan Discharge Plan: Other (Inpatient rehab) Plan to discharge in: Greater than 2 days Physician Review Additional Text: Impression: Fall leading to left subcapital fracture to the proximal left femur Rhabdomyolysis Fibromyalgia with chronic pain Cardiac murmur Elevated blood pressure without hypertension Obesity, BMI 31 Plan: Fall leading to left subcapital fracture to the proximal left femur: Case discussed with orthopedics this morning. Orthopedics plans for surgical intervention later today. Patient will require physical therapy thereafter. Patient will be a good candidate for inpatient rehab. Continue with pain control. Patient remains NPO at this time. Rhabdomyolysis: Continue IV fluids. Continue to monitor levels. Fibromyalgia with chronic pain: Will continue her medication. Cardiac murmur: Will check echocardiogram. Elevated blood pressure without hypertension: Will continue to monitor blood pressures closely. If this remains elevated patient may require medication. Obesity, BMI 31: Address lifestyle modification education Time Spent Managing Pts Care (In Minutes): 55
--- NOTE | 2018-09-05 16:08 | ECHO ---
HEIGHT: 5 ft 3 in WEIGHT: 175 lb 0 oz DATE OF STUDY: 09/05/[address]: Hugo Moctezuma MD 2-DIMENSIONAL: YES M.MODE: YES DOPPLER: YES COLOR FLOW: YES TDS: NO PORTABLE: NO DEFINITY: NO BUBBLE STUDY: NO DIAGNOSIS: SYSTOLIC MURMUR CARDIAC HISTORY: CATHERIZATION: SURGERY: PROSTHETIC VALVE: PACEMAKER: MEASUREMENTS (cm) DIASTOLIC (NORMALS) SYSTOLIC (NORMALS) IVSd (0.6-1.2) LA Diam (1.9-4.0) LVEF % LVIDd (3.5-5.7) LVIDs (2.0-3.5) %FS % LVPWd (0.6-1.2) Ao Diam (2.0-3.7) 2 DIMENSIONAL ASSESSMENT: RIGHT ATRIUM: NORMAL LEFT ATRIUM: NORMAL RIGHT VENTRICLE: NORMAL LEFT VENTRICLE: NORMLA TRICUSPID VALVE: NORMAL MITRAL VALVE: NORMAL PULMONIC VALVE: NORMAL AORTIC VALVE: SCLEROSIS PERICARDIAL EFFUSION: NONE AORTIC ROOT: NORMAL LEFT VENTRICULAR WALL MOTION: DOPPLER/COLOR FLOW: MILD TRICUSPID REGURGITATION. COMMENTS: MILD TRICUSPID REGURGITATION. AORTIC SCLEROSIS. NO WALL MOTION ABNORMALITY. NO EFFUSION. NORMAL LEFT VENTRICULAR SIZE AND FUNCTION. TECHNOLOGIST: Travon CAMERON
[2018-09-05] MEDS: SERTRALINE HCL 50 MG TAB PO SCH (20:39)
--- NOTE | 2018-09-05 23:09 | CON ---
Reason For Consultation: Regarding left hip fracture. History Of Present Illness: This 68-year-old female fell at home landing on her left side. She sean ed any loss of consciousness or dizziness prior to her fall. She was helped to her bed by her christyban d and a friend, and she indicates that she suffered her fracture on 09/03/2018. She spent a d ay in bed before being admitted on 09/04/2018. Allergies: THE PATIENT HAS NO KNOWN ALLERGIES. Medications: Home medications include hydrocodone, [place] 10/325 tablets q.8 hours as needed for pain . She also takes Prilosec and Zoloft. Past Medical History: She has had medical treatment for fibromyalgia, arthritis, polycystic ovaries. The patient has had cholecystectomy, gastric bypass surgery, gastric segmentation. Family History: Noncontributory. Physical Examination: Vital Signs: Stable. Temperature 98.0, pulse rate 75, respiratory rate 16, blood pressure 127/69. Pain level has been listed as 8, 5, 5. HEENT: Within normal limits. Neck: Supple. Chest: Clear to auscultation. Heart: Has a regular rate and rhythm. Abdomen: Soft and nontender. Active bowel sounds are present. Genital and Rectal: Exams are deferr ed. Extremities: The patient has external rotation of the left hip. Dorsal pedis pulse is 2+. Capillar y filling is brisk. Neurovascular: Exam is intact. Imaging Data: X-rays show a subcapital fracture of the proximal left femoral neck with displacement and varus angulation. No additional fracture was seen. Assessment: This patient was seen this morning prior to beginning surgery for the day. She was list ed as a third surgery with total knee surgery and a previously admitted hip surgery. It became clear that as the afternoon procedure would not involve adequate assistance for a hip surgery, it was resc heduled for Tuesday, approximately mid morning to late morning. The patient had agreed to be n.p.o . for the possibility of having surgery on the day of consultation but was quite understanding when i t was rescheduled for the following day. Every effort was made to perform the surgery today as the p atient had fallen and went to bedrest at home for 24 hours before presenting to the hospital. CATHY/RED Voice ID: [id number] Report ID: [id number]
[2018-09-06] MEDS: NA CHLORIDE 0.9% 1,000 ML IV SCH ×3 (00:27→22:16)
[2018-09-06] MEDS: FENTANYL CITR 100 MCG/2 ML IV PRN (05:31)
[2018-09-06] MEDS ORDERED: hydrOXYzine HCl 25 MG TAB PO ONE (06:07)
[2018-09-06 06:11] LABS: Absolute Monocytes 0.6 K/uL (0.1-1.3); Absolute Neutrophil 4.1 K/uL (1.8-8.0); Basophils % 0.3 % (0-1.3); Eosinophils % 2.3 % (0-4.4); Hematocrit 36.6 % (36.0-45.0); Lymphocytes % 17.3 % (15.3-44.8); MPV 9.1 fL (7.6-11.3); Monocytes % 10.6 % (3.3-12.3)
[2018-09-06 06:14] LABS: ALT/SGPT 20 U/L (12-78); AST/SGOT 16 U/L (15-37); Albumin 2.8 g/dL (3.4-5.0); Alkaline Phosphatase 132 U/L (45-117); BUN Blood Urea Nitrogen 6 mg/dL (7-18); Bicarbonate 28 mmol/L (21-32); Bilirubin Total 0.7 mg/dL (0.2-1.0); Creatine Phosphokinase 216 U/L (26-192); Glucose Level 102 mg/dL (74-106); Magnesium 1.9 mg/dL (1.8-2.4); Potassium 3.8 mmol/L (3.5-5.1); Protein, Total 6.3 g/dL (6.4-8.2); Sodium Level 142 mmol/L (136-145)
[2018-09-06] MEDS ORDERED: POTASSIUM CL SA 10 MEQ TAB PO ONE (06:18)
[2018-09-06] MEDS: ENOXAPARIN 40 MG/0.4 ML SQ SCH (08:13)
[2018-09-06] MEDS: FAMOTIDINE 20 MG TAB PO SCH ×2 (08:16→21:45)
[2018-09-06] MEDS ORDERED: TRANEXAMIC ACID 1,000 MG in NA CHLORIDE 0.9% 50 ML IV ONE (08:19)
[2018-09-06] MEDS ORDERED: CEFAZOLIN/SWI 1gm 1 GM/10 ML SYR IV SCH (08:30)
--- NOTE | 2018-09-06 09:52 | P.PN ---
Subjective Date of Service: 09/06/18 Primary Care Provider: Lindsey Diaz NP Chief Complaint: hip fracture Subjective: Doing well Physical Examination - Vital Signs Temperature: 97 F Blood Pressure: 179/81 Pulse: 70 Respirations: 17 Pulse Ox (%): 95 - Physical Exam General: Alert, In no apparent distress, Oriented x3, Cooperative HEENT: Atraumatic Neck: Supple Respiratory: Clear to auscultation bilaterally, Normal air movement Cardiovascular: Normal pulses, Regular rate/rhythm Gastrointestinal: Normal bowel sounds, Soft and benign, Non-distended, No tenderness, No masses, No rebound, No guarding Musculoskeletal: No erythema, No tenderness, No warmth Integumentary: No tenderness/swelling, No erythema, No warmth, No cyanosis Neurological: Normal speech, Normal strength at 5/5 x4 extr, Normal tone, Normal affect - Studies Medications List Reviewed: Yes Assessment & Plan Discharge Plan: Home Plan to discharge in: 72 Hours Physician Review Additional Text: Impression: Fall leading to left subcapital fracture to the proximal left femur Rhabdomyolysis Fibromyalgia with chronic pain Cardiac murmur Elevated blood pressure without hypertension Obesity, BMI 31 Plan: Fall leading to left subcapital fracture to the proximal left femur: Patient currently NPO. Surgical intervention planned for today. Patient will require physical therapy after surgery. Patient desires to go home at discharge. Rhabdomyolysis: Continue IV fluids. Overall this has improved. Continue to monitor levels. Fibromyalgia with chronic pain: Will continue her pain medication medication. Cardiac murmur: Echo reviewed.. Elevated blood pressure without hypertension: Blood pressure remains elevated. Will start low-dose JARED-inhibitor. Will monitor and adjust appropriately. Obesity, BMI 31: Address lifestyle modification education Time Spent Managing Pts Care (In Minutes): 55
[2018-09-06] MEDS ORDERED: Ringers Lactate 1,000 ML IV ONE ×3 (10:06→15:29)
[2018-09-06] MEDS ORDERED: CEFAZOLIN/SWI 1gm 1 GM/10 ML SYR ONE (10:12)
[2018-09-06] MEDS ORDERED: BUPIVACA 0.5%/EPI 0.0005%/PF 30 ML VIAL ONE (10:45)
[2018-09-06] MEDS ORDERED: PROPOFOL 200 MG/20 ML VIAL IV ONE (11:08)
[2018-09-06] MEDS ORDERED: ROCURONIUM 50 MG/5 ML VIAL IV ONE (11:09)
[2018-09-06] MEDS ORDERED: MIDAZOLAM HCL 2 MG/2 ML INJ ONE (11:09)
[2018-09-06] MEDS ORDERED: FENTANYL CITR 250 MCG/5 ML ONE (11:09)
[2018-09-06] MEDS ORDERED: LIDOCAINE 2% MPF 5 ML VIAL ONE (11:09)
[2018-09-06] MEDS ORDERED: Phenylephrine HCl 10 MG/ML 1 ML VIAL ONE (12:21)
[2018-09-06] MEDS ORDERED: EPHEDRINE SULF 50 MG/ML VIAL ONE (12:53)
[2018-09-06] MEDS ORDERED: KETOROLAC 30 MG/ML INJ ONE (15:09)
[2018-09-06] MEDS ORDERED: MORPHINE 10 MG/ML VIAL ONE (15:14)
[2018-09-06] MEDS: HYDROMORPHONE HCL 2 MG/ML inj ONE ×2 (15:53→16:10)
--- NOTE | 2018-09-06 17:00 | P.BOP ---
Preoperative diagnosis: LEFT HIP FEMORAL NECK FRACTURE, DISPLACED Primary procedure: INSERTION OF CEMENTED UNIPOLAR HIP PROSTHESIS FOR FEMORAL NECK FRACTURE Pressure Steamer Tender: Prince Sol Estimated blood loss: 250 mL Specimen: FEMORAL HEAD CALCAR BONE SHARDS AND SOFT TISSUES DEBRIDED Findings: MID CERVICAL FEM. NECK FRACTURE, INTACT FEMORAL HEAD AND ACETABULUM Anesthesia: General Complications: Other (DURING REDUCTION LOST CONTROL OF HIP BALL WHICH SWEPT SOFT TISSUE INTO ACETABULUM. REPAIR OF POST.CAPSULE EFFORT REVEALED ENTRAPMENT AND HIP WAS REDISLOCATED TO FREE SOFT TISSUE. NEARBY SCIATIC N. APPEARED TO DEMONSTRATE DAMAGE. RESUMED CLOSURE. PATIENT IN RECOVERY DEMONSTRATES DORSIFLEX ANKLE AND TOES. SENSATION INTACT ANDTERIOR THIGH, LOWER LEG, AND FOOT. ABLE TO LIFT LOWER LEG BY TENSING QUADRICEPS. UNABLE TO TEST HAMSTRINGS DUE TO DISCOMFORT.) Implants: MOD.HIP [id number];12/14TAPER-3mm;[id number] STEM SUMMIT Fluids & blood products: SIMPLEX HV CEMENT w/GENT Transferred to: Recovery Room Condition: Good
[2018-09-06 17:26] LABS: Hematocrit 35.9 % (36.0-45.0)
--- NOTE | 2018-09-06 17:26 | RAD REPORT ---
EXAM DESCRIPTION: RAD - Pelvis - 09/06/2018 5:20 pm CLINICAL HISTORY: low pelvis for post op hip prosthesis Left total hip arthroplasty COMPARISON: Pelvis dated 09/04/2018 FINDINGS: A left total hip arthroplasty has been performed. No unusual or unexpected finding.
[2018-09-06] MEDS: CETIRIZINE HCL 5 MG TABLET PO SCH (18:38)
[2018-09-06] MEDS: SERTRALINE HCL 50 MG TAB PO SCH (21:45)
[2018-09-06] MEDS: HYDROCODONE/APAP 7.5/325 MG TAB PO PRN (21:48)
[2018-09-07 06:01] LABS: Absolute Lymphocytes (CBC) 0.6 K/uL (0.7-4.9); Absolute Monocytes 0.9 K/uL (0.1-1.3); Absolute Neutrophil 6.4 K/uL (1.8-8.0); Basophils % 0.1 % (0-1.3); Eosinophils % 0.7 % (0-4.4); Hematocrit 33.4 % (36.0-45.0); Lymphocytes % 7.8 % (15.3-44.8); MPV 9.2 fL (7.6-11.3); Monocytes % 10.9 % (3.3-12.3); RBC Red Blood Cell Count 3.96 M/uL (3.86-4.86)
[2018-09-07 06:19] LABS: ALT/SGPT 21 U/L (12-78); AST/SGOT 28 U/L (15-37); Albumin 2.5 g/dL (3.4-5.0); Alkaline Phosphatase 119 U/L (45-117); BUN Blood Urea Nitrogen 8 mg/dL (7-18); Bicarbonate 28 mmol/L (21-32); Bilirubin Total 0.8 mg/dL (0.2-1.0); Creatine Phosphokinase 553 U/L (26-192); Glucose Level 120 mg/dL (74-106); Magnesium 1.8 mg/dL (1.8-2.4); Potassium 4.1 mmol/L (3.5-5.1); Sodium Level 139 mmol/L (136-145)
[2018-09-07] MEDS ORDERED: MAGNESIUM SULFATE 1 gm IVPB 1 GM/100 ML BAG IV ONE (06:23)
[2018-09-07] MEDS: HYDROCODONE/APAP 7.5/325 MG TAB PO PRN ×2 (06:50→14:13)
[2018-09-07] MEDS: NA CHLORIDE 0.9% 1,000 ML IV SCH ×3 (08:57→20:33)
[2018-09-07] MEDS: CETIRIZINE HCL 5 MG TABLET PO SCH (08:58)
[2018-09-07] MEDS: FAMOTIDINE 20 MG TAB PO SCH ×2 (08:58→20:33)
[2018-09-07] MEDS: LISINOPRIL 5 MG TAB PO SCH (08:58)
--- NOTE | 2018-09-07 09:18 | OP ---
Surgeon: Prince Sol MD This patient was taken to the operating room, given a general anesthesia with intubation in the supine position, then moved to the right lateral position with the left hip exposed. An axillary roll and padding for bony prominences were placed into position. Padded Bolsters were placed for support on the abdomen, lower back and pubic rami. The left foot was placed in traction, and a Betadine scrub and paint prep was applied from the ribcage across the hip and circumferentially down the LLE to the ankle. The patient's leg was taken from traction and A DuraPrep applicator was used to prep the ankle and foot. After an impervious stockinette and Coban wrap were applied, the incision was drawn and an Ioban sticky drape was applied circumferentially at the operative site. The incision was made along the posterior border of the proximal femur curving towards the posterior superior iliac spine. The incision was carried Sharply through the skin and subcutaneous tissue where the fascia chela was exposed. The incision was carried through the fascia chela with cutting Bovie, and blunt finger traction was used to split the gluteus patience muscle. Self retainers were applied to maintain traction on the gluteus patience and fascia Chela layer, and the external rotator muscles were carefully taken down from the posterior proximal femur and tagged with number one Vicryl to be retracted to protect the sciatic nerve. The cutting bovie takedown of the posterior capsule from the proximal femur exposed the calcar fracture which was displaced posteriorly along with the proximal femur. The capsular layer was divided up to the piriformis insertion where it was divided and tagged for traction. The capsular incision was then angled 90*And carried to the superior acetabular rim. Tags were placed at appropriate locations along the length of the posterior capsule And retracted to expose the femoral head. The T handle corkscrew was used to control the femoral head which was removed using traction and leverage. The femoral head was measured at 45 mm diameter in the same size trial was a good fit in the acetabulum. The acetabulum was inspected and found to be intact without damage so progression to unipolar hip prosthesis was determined. The Calcar retractor and Ny retractor were placed in position and preparation of the proximal femur was started with the initiator followed by the lateralizer and the canal finder. Sequential reaming was carried out to a size 5 and then broaches were tapped into place until the size 5 was found to be stable with the -3 mm neck and 45 mm head. The trial prosthetic components were removed. An intramedullary plug was placed in the medullary canal at the appropriate depth, and Simpulse irrigation was followed by drying while 2 batches of simplex HV cement with gentamicin were being mixed and inserted in the cement gun for a pressurized technique. Cement was injected and the [employer] cemented stem size 5 was held in position while cement was allowed to set up. The 06/02, -3 neck spacer was inserted into the Modular fracture hip ball 45 mm diameter, And both were tapped into position on the taper of the cemented stem. During the first reduction attempt with traction on the leg and the pusher from above, the control of the humeral head was lost as the pusher slipped off and the head swept soft tissue posteriorly into the acetabulum. Dislocation required use of the bone hook and it was difficult to perform without chewing or pinching on the soft tissue entrapped. The bone hook was used to lift The hip ball while the gloved finger was used to sweep soft tissue out of the acetabulum. Inspection of the soft tissue indicated substantial disruption of the perineural fat around the sciatic nerve and questionable integrity of the nerve itself. Closure was initiated. Simpulse lavage was utilized carefully during each step of closure. The posterior capsule was repaired with interrupted sutures of number one Vicryl. Piriformis insertion and external rotators and quadratus muscle were also repaired with interrupted sutures of Number one Vicryl. Fascia Chela and gluteus patience were repaired. Subcutaneous deep repair was done with number one Vicryl, and subcutaneous superficial was closed with interrupted sutures of 2-0 Vicryl. Skin was closed with skin skinny , and the incision was injected with 30 mL of 0.5% Marcaine with EPI. An Aquacel bandage was applied. Estimated blood loss was 250 mL. The patient awakened and demonstrated dorsiflexion of ankle and toes with sensation intact for the anterior thigh, lower leg and foot. The patient was able to lift the lower leg by tensing quadriceps. Hamstrings were unable to be tested due to discomfort.. The patients family was advised of this possible complication and Neurology consult was requested. CATHY/RED Voice ID: [id number] Report ID: [id number] MTDD
--- NOTE | 2018-09-07 13:04 | P.PN ---
Subjective Date of Service: 09/07/18 Primary Care Provider: Lindsey Diaz NP Chief Complaint: hip fracture Subjective: Doing well Physical Examination - Vital Signs Temperature: 97.9 F Blood Pressure: 150/67 Pulse: 82 Respirations: 16 Pulse Ox (%): 97 - Physical Exam General: Alert, In no apparent distress, Oriented x3, Cooperative HEENT: Atraumatic Neck: Supple Respiratory: Clear to auscultation bilaterally, Normal air movement Cardiovascular: Normal pulses, Regular rate/rhythm Gastrointestinal: Normal bowel sounds, Soft and benign, Non-distended, No tenderness, No masses, No rebound, No guarding Musculoskeletal: No erythema, No tenderness, No warmth Neurological: Other (Pain well controlled to the lower extremities bilateral. Patient able to flex hamstrings appropriately. Patient able to move feet appropriately. Good sensation noted.) - Studies Medications List Reviewed: Yes Assessment & Plan Discharge Plan: Other (Inpatient rehab) Plan to discharge in: Greater than 2 days Physician Review Additional Text: Impression: Traumatic Fall leading to left subcapital fracture to the proximal left femur, status post hip repair with complication of possible sciatic nerve entrapment Rhabdomyolysis Fibromyalgia with chronic pain Cardiac murmur Hypertension Obesity, BMI 31 Plan: Traumatic Fall leading to left subcapital fracture to the proximal left femur, status post hip repair with complication of possible sciatic nerve entrapment: Pain well controlled. Continue to monitor closely. Patient to be evaluated by a neurology today. Will hold off on physical therapy until seen by a nephrology. Await further recommendations. Will discuss with orthopedics. Will need to consider inpatient rehab after recommendation from Neurology. Rhabdomyolysis: Continue IV fluids. Overall this has improved. Continue to monitor levels. Fibromyalgia with chronic pain: Will continue her pain medication medication. Cardiac murmur: Overall stable. Hypertension: Lisinopril initiated. Will monitor and adjust appropriately. Obesity, BMI 31: Address lifestyle modification education Time Spent Managing Pts Care (In Minutes): 55
--- NOTE | 2018-09-07 14:13 | P.PN ---
Date of Service: 09/07/18 (POD#1) S: Patient appears comfortable, smiling this a.m. in bed with abduction pillow in place. Visiting with friend. O: Afebrile,VSS, HGB 12.5 post op, and 11.5 this a.m. bandage left hip is clean , dry and intact. NV exam as in recovery shows active flexion and extension of ankle and toes with strength. DP and PT pulses present. Brisk capillary refill notes. Sensation intact to plantar and dorsal foot and lower leg. Quad tenses to partially lift LLE. Hamstring muscles tense and slide heel proximally by two inches. Sensation intact anterior and posterior thigh to light touch and pinch. A: NV exam is encouraging that soft tissue pinch may not have injured sciatic nerve as feared. Neurology consult pending. Patient's pain is minimal to that expected with this type of operation. P: Patient encouraged to lift RLE x 5 then attempt to lift LLE x 1 while in bed. Straps loosened on abd. pillow to facillitate exercise. Ankle and toe flaps to be done near continuously to promote venous return past the swollen left hip area. Sliding heels up and down also encouraged. Dr. Guillen delayed PT this a.m. but would like to see bed exercise, sit stand efforts to get patient mobilized to some degree today.
[2018-09-07] MEDS: ENOXAPARIN 40 MG/0.4 ML SQ SCH (16:42)
[2018-09-07] MEDS: SERTRALINE HCL 50 MG TAB PO SCH (20:32)
[2018-09-08 04:25] LABS: Hematocrit 32.7 % (36.0-45.0)
[2018-09-08 05:06] LABS: BUN Blood Urea Nitrogen 8 mg/dL (7-18); Bicarbonate 25 mmol/L (21-32); Glucose Level 121 mg/dL (74-106); Potassium 3.9 mmol/L (3.5-5.1); Sodium Level 138 mmol/L (136-145)
[2018-09-08] MEDS: NA CHLORIDE 0.9% 1,000 ML IV SCH ×2 (05:34→13:24)
[2018-09-08] MEDS ORDERED: POTASSIUM CL SA 10 MEQ TAB PO ONE (06:00)
[2018-09-08] MEDS ORDERED: LACTULOSE 20 GM/30 ML UCUP PO PRN (08:54)
--- NOTE | 2018-09-08 08:54 | P.PN ---
Subjective Date of Service: 09/08/18 Primary Care Provider: Lindsey Diaz NP Chief Complaint: hip fracture Subjective: Doing well (Patient doing well. Pain well controlled.) Physical Examination - Vital Signs Temperature: 97.6 F Blood Pressure: 136/71 Pulse: 84 Respirations: 18 Pulse Ox (%): 96 - Physical Exam General: Alert, In no apparent distress, Oriented x3, Cooperative HEENT: Atraumatic Neck: Supple Respiratory: Clear to auscultation bilaterally, Normal air movement Cardiovascular: Normal pulses, Regular rate/rhythm Gastrointestinal: Normal bowel sounds, Soft and benign, Non-distended, No tenderness, No masses, No rebound, No guarding Musculoskeletal: No erythema, No tenderness, No warmth Integumentary: No tenderness/swelling, No erythema, No warmth, No cyanosis Neurological: Normal speech, Normal strength at 5/5 x4 extr, Normal tone, Normal affect - Studies Medications List Reviewed: Yes Assessment & Plan Discharge Plan: Other (Inpatient rehab) Plan to discharge in: 24 Hours Physician Review Additional Text: Impression: Traumatic Fall leading to left subcapital fracture to the proximal left femur, status post hip repair with complication of possible sciatic nerve entrapment, postop day 2 Rhabdomyolysis Fibromyalgia with chronic pain Cardiac murmur Hypertension Depression Obesity, BMI 31 Plan: Traumatic Fall leading to left subcapital fracture to the proximal left femur, status post hip repair with complication of possible sciatic nerve entrapment, postop day 2: Pain well controlled. Patient has done well. Patient evaluated by neurology. No evidence of major nerve injury. Anticipate initiation of physical therapy today. Will continue to recommend inpatient rehab. Anticipate inpatient rehab transfer within the next 1-2 days. Continue with DVT prophylaxis. Encourage incentive spirometer. Once the patient is ambulating well then will discontinue [place] catheter and IV fluids. Rhabdomyolysis: Doing well. Discontinue IV fluids if taking good oral intake. Fibromyalgia with chronic pain: Will continue her pain medication medication. Cardiac murmur: Overall stable. Hypertension: Continue with home medication. Will monitor and adjust appropriately. Depression: Continue with home medication Obesity, BMI 31: Continue to address lifestyle modification education Time Spent Managing Pts Care (In Minutes): 55
[2018-09-08] MEDS: DOCUSATE NA 100 MG CAP PO SCH (09:00)
[2018-09-08] MEDS: CETIRIZINE HCL 5 MG TABLET PO SCH (09:21)
[2018-09-08] MEDS: HYDROCODONE/APAP 7.5/325 MG TAB PO PRN ×3 (09:21→20:53)
[2018-09-08] MEDS: LISINOPRIL 5 MG TAB PO SCH (09:21)
[2018-09-08] MEDS: FAMOTIDINE 20 MG TAB PO SCH ×2 (09:21→20:52)
--- NOTE | 2018-09-08 13:34 | P.PN ---
Date of Service: 09/08/18 (POD#2) S: Patient comfortable, in good spirits with abduction pillow in place. and friend in room. O: Afebrile,VSS, HGB 10.8 down from 11.5 yesterday. Bandage left hip is clean, dry and intact. NV exam continues to show active flexion and extension of ankle and toes with strength. Brisk capillary refill noted. Sensation intact to plantar and dorsal foot and lower leg. Discussed patient with Dr. Doshi. Neurology exam clears patient from sciatic nerve injury, report pending. Patient up with PT 20' with FWW this a.m. A: Patient's pain is well controlled with [place] 7.5/325 ~ 2 tabs/d, less than expected with this operation. P: Patient encouraged to continue bed exercises. Expect another PT effort this afternoon. Dr. Guillen working on 5th floor rehabilitation placement. Simethicone 125 mg tabs q 6 hrs prn ordered at patient's request.
[2018-09-08] MEDS: SIMETHICONE 125 MG TAB PO PRN ×2 (15:34→23:30)
[2018-09-08] MEDS: ENOXAPARIN 40 MG/0.4 ML SQ SCH (17:04)
--- NOTE | 2018-09-08 18:16 | CON ---
Reason For Consultation: Consultation was called by Dr. Sol and Dr. Guillen because of possible in jury to the left sciatic nerve. History Of Present Illness: Ms. Ahmadi is a 68-year-old patient with fibromyalgia, arthritis, who fe ll at home on the 03 of September, landed on her left side and developed pain. She was evaluated at [facility] and found to have a left subcapital femur fracture. She was evaluated by the Ortho pedic Service, and Dr. Sol determined that she was an appropriate candidate for surgical intervent ion. On the , she did undergo surgical insertion of a cemented unipolar hip prosthesis for the l eft femoral neck fracture. During the procedure, Dr. Sol indicated that the patient apparently tu rned in a way that may have both minor compression on the sciatic nerve region and suggested the poss ibility of a nerve damage. The procedure was completed and the patient did wake up and was able to l ift the lower leg by tensing the quadriceps. He was unable to test the hamstring due to discomfort a t that point. My evaluation of the patient occurred on the 07 of September. At that time, she was out of surgical recovery, in a private room. She did not report pain in the left lower extremity aside from at the surgical site, however, there was no pain radiating down the back of the posterior thigh into the knee or leg. She was able to move her foot with dorsiflexion, plantar flexion, inversion, a nd eversion without difficulty. She did lift the knee off the bed, although there was some limitatio n proximally in the hip because of pain, and she was able to mildly hold her knee onto the bed, but t hat is not fully evaluated as she obviously just had left hip surgery. She denied any significant se nsory loss on the left side compared to the right side in the leg, thigh, and foot. She had not yet been ambulated by the Physical Therapy Service, but she was on the schedule to be up and out of bed later in the day yesterday. After my discussion with the therapist, she was able to b e out of bed and ambulated 10 feet without any significant difficulty. Past Medical History: Includes polycystic ovaries, fibromyalgia. Past Surgical History: D and C, cholecystectomy, gastric bypass surgery. Family History: Diabetes and hypertension in mother. Social History: No alcohol, tobacco, or IV drug use. Allergies: NO KNOWN DRUG ALLERGIES. Medications: At home, [place] 10/325 every 8 hours as needed, Prilosec 40 mg daily, Zoloft 20 mg at be dtime. Review of Systems: She denies any fevers, chills, nausea, and vomiting. No rash or psychiatric complaints. No gastroin testinal or genitourinary issues. Physical Examination: Vital Signs: Blood pressure 136/71, pulse 84, respiratory rate 18, temperature 97.6, oxygen saturati on 96% on room air. Weight 175 pounds, height 5 feet and 3 inches. General: Ms. Ahmadi is resting in bed. She is in no acute distress. HEENT: She is normocephalic, atraumatic. Her sclerae are anicteric. Oropharynx is moist and pink. Neck: Supple. Chest: Clear. Heart: Regular. Extremities: Show no significant edema, cyanosis, or clubbing, although slight swelling of the left lower extremity compared to the right side proximally, that is at the hip and thigh area. Neurological: She is alert and oriented to situation, place, and person. Follows all commands appro priately. No cranial nerve deficits in upper extremities. No focal motor deficits. Full strength c annot be assessed in the left lower extremity due to recent surgery, but distally she is at least 5- to 5 for foot dorsiflexion, plantar flexion, inversion, eversion. For knee flexion and extension, sh e is against gravity at least to 3+/5. Forward flexion and extension, hip flexion and extension can be fully assessed, but she is able to bend the knee upwards and down. Sensory exam compared to left to right shows minor decrease to light touch, but the patient does have some mild swelling postoperat ively and distally it is equal in the foot, right and left end of the side, right and left side. [employer] rdination in upper extremities is intact. As indicated, she will be ambulated with Physical Therapy. Laboratory Studies: Complete blood count with differential shows slightly decreased hemoglobin to 10 .8, hematocrit 32.7, white blood cell count normal at 8.0. INR 1.09. Chemistries; sodium, chloride, potassium, bicarb, BUN are all normal. Creatinine 0.34, glucose 121, calcium 8.2, magnesium 2.0. L iver function studies show slightly elevated alkaline phosphatase at 119. ALT and AST are normal. A lbumin slightly low at 2.5. A pelvic x-ray following surgery shows left total hip arthroplasty witho ut unusual findings. Assessment: Ms. Ahmadi is a 68-year-old patient with no evidence of injury to her left lower extremi ty nerves including sciatic or femoral or peroneal nerve. She should have a normal expected recovery following hip surgery. Plan: She may have physical and occupational therapy for her acute recovery, potentially admitted to inpatient rehabilitation unit and proceed with appropriate therapy, which may include home health or outpatient therapy once she is successfully completed inpatient rehabilitation. Pain will be manage d as appropriate and comorbid conditions always will be managed as appropriate. INOCENCIO/RED Voice ID: [id number] Report ID: [id number]
[2018-09-08] MEDS: SERTRALINE HCL 50 MG TAB PO SCH (20:52)
[2018-09-09 05:47] LABS: Hematocrit 33.1 % (36.0-45.0)
[2018-09-09 05:55] LABS: BUN Blood Urea Nitrogen 11 mg/dL (7-18); Bicarbonate 27 mmol/L (21-32); Glucose Level 103 mg/dL (74-106); Potassium 3.7 mmol/L (3.5-5.1); Sodium Level 140 mmol/L (136-145)
[2018-09-09] MEDS ORDERED: POTASSIUM 25 MEQ EFFERV TAB PO ONE (08:00)
[2018-09-09] MEDS: LISINOPRIL 5 MG TAB PO SCH (08:39)
[2018-09-09] MEDS: HYDROCODONE/APAP 7.5/325 MG TAB PO PRN ×3 (08:39→20:49)
[2018-09-09] MEDS: CETIRIZINE HCL 5 MG TABLET PO SCH (08:40)
[2018-09-09] MEDS: DOCUSATE NA 100 MG CAP PO SCH (08:40)
[2018-09-09] MEDS: FAMOTIDINE 20 MG TAB PO SCH ×2 (08:41→20:50)
--- NOTE | 2018-09-09 09:17 | P.PN ---
Subjective Date of Service: 09/09/18 Primary Care Provider: Lindsey Diaz NP Chief Complaint: hip fracture Subjective: Improving Physical Examination - Vital Signs Temperature: 97.9 F Blood Pressure: 141/64 Pulse: 85 Respirations: 17 Pulse Ox (%): 91 - Physical Exam General: Alert, In no apparent distress, Oriented x3, Cooperative HEENT: Atraumatic Neck: Supple Respiratory: Clear to auscultation bilaterally, Normal air movement Cardiovascular: Normal pulses, Regular rate/rhythm Gastrointestinal: Normal bowel sounds, Soft and benign, Non-distended, No masses , No rebound, No guarding Musculoskeletal: No erythema, No tenderness, No warmth Integumentary: No tenderness/swelling, No erythema, No warmth, No cyanosis Neurological: Normal speech, Normal strength at 5/5 x4 extr, Normal tone, Normal affect - Studies Medications List Reviewed: Yes Assessment & Plan Discharge Plan: Other (Inpatient rehab) Plan to discharge in: 24 Hours Physician Review Additional Text: Impression: Traumatic Fall leading to left subcapital fracture to the proximal left femur, status post hip repair with complication of possible sciatic nerve entrapment, postop day 3 Rhabdomyolysis Fibromyalgia with chronic pain Cardiac murmur Hypertension Depression Obesity, BMI 31 Plan: Traumatic Fall leading to left subcapital fracture to the proximal left femur, status post hip repair with complication of possible sciatic nerve entrapment, postop day 3: Patient continues to do well. Continue with pain control medication. Patient accepted to inpatient rehab. This will likely occur tomorrow. Continue DVT prophylaxis, incentive spirometer. Provide medication for constipation. Rhabdomyolysis: Doing well. Overall stable. Fibromyalgia with chronic pain: Will continue her pain medication medication. Cardiac murmur: Overall stable. Hypertension: Continue with home medication. Will monitor and adjust appropriately. Depression: Continue with home medication Obesity, BMI 31: Continue to address lifestyle modification education Time Spent Managing Pts Care (In Minutes): 55
--- NOTE | 2018-09-09 16:04 | P.PN ---
Date of Service: 09/09/18 (POD#3) S: Patient comfortable, again in good spirits. and friend in room. O: Afebrile,VSS, HGB 10.8, stable, was 10.8 yesterday. Bandage left hip is clean, dry and intact. NV exam continues to show active flexion and extension of ankle and toes with strength. Brisk capillary refill noted. Sensation intact to plantar and dorsal foot and lower leg. Dr. Doshi's Neurology exam shows no indication of nerve injury LLE. Patient up with PT 60' with FWW today. A: Patient's pain is well controlled with [place] 7.5/325 ~ 2 to 3 tabs/d, less than expected with this operation. the patient is pleased with her progress and looks forward to additional therapy, possibly with transfer to fifth floor rehabilitation. P: Patient encouraged to continue bed exercises. Dr. Guillen working on 5th floor rehabilitation placement.
[2018-09-09] MEDS: ENOXAPARIN 40 MG/0.4 ML SQ SCH (16:30)
[2018-09-09] MEDS: SERTRALINE HCL 50 MG TAB PO SCH (20:50)
[2018-09-10 05:13] VITALS: TEMP 97.2
--- NOTE | 2018-09-10 08:47 | P.DS ---
Admission Date: 09/04/18 Discharge Date: 09/10/18 Primary Care Provider: Lindsey Diaz NP Disposition: TRANSFER TO INPATIENT REHAB Discharge Condition: GOOD Reason for Admission: hip fracture Consultations: Surgery-Dr. Sol Neurology-Dr. Doshi Procedures: Hip xray: FINDINGS: AP pelvis, left hip and left femur- multiple projections are submitted Subcapital fracture is present proximal left femur with varus angulation. No additional fracture or dislocation seen. Surgery: Insertion of see mentate unipolar hip prosthesis for femoral neck fracture. ECHO: DOPPLER/COLOR FLOW: MILD TRICUSPID REGURGITATION. COMMENTS: MILD TRICUSPID REGURGITATION. AORTIC SCLEROSIS. NO WALL MOTION ABNORMALITY. NO EFFUSION. NORMAL LEFT VENTRICULAR SIZE AND FUNCTION. Medical Problem list: Traumatic Fall leading to left subcapital fracture to the proximal left femur, status post hip repair with complication of possible sciatic nerve entrapment but this resolved Rhabdomyolysis Fibromyalgia with chronic pain Cardiac murmur Hypertension Depression Obesity, BMI 31 GERD Brief History of Present Illness: 68-year-old female presented emergency room after traumatic fall to the left side. Patient found to have left hip fracture. Patient admitted for treatment. Hospital Course: Patient presented with traumatic fall leading to left subcapital fracture to the proximal left femur. Patient seen and evaluated by this orthopedics. Surgery was recommended. Patient had left hip repair. During surgery complication occurred. There was suspected sciatic nerve entrapment. Post surgery patient did well. No nerve abnormality noted. Patient seen evaluated by neurology, who agreed. Patient has done well with physical therapy. Patient evaluated for inpatient rehab. Patient has been accepted to inpatient rehab to continue her care. Patient will continue with pain control medication. Patient to continue with DVT prophylaxis-Lovenox 40 mg daily. Patient also had rhabdomyolysis. Patient received IV fluids. This improved. Patient now tolerating diet at this time. Patient with history of fibromyalgia and chronic pain. Patient will continue with her chronic pain medication. Patient with hypertension. Patient previously not on medication. Lisinopril was initiated. At discharge she will continue with lisinopril 5 mg daily. Recommendation is to maintain blood pressures less 150/80. Further adjustment can be done by her PCP. Patient with depression. Patient will continue with her medication-Zoloft 25 and mg daily. Patient with GERD. Patient will continue with Prilosec 20 mg daily. Vital Signs/Physical Exam: Temp Pulse Resp BP Pulse Ox 97.2 F 80 18 141/66 H 98 09/10/18 04:00 09/10/18 04:00 09/10/18 04:00 09/10/18 04:00 09/10/18 04:00 General: Alert, In no apparent distress, Oriented x3, Cooperative HEENT: Atraumatic Neck: Supple Respiratory: Clear to auscultation bilaterally, Normal air movement Cardiovascular: Normal pulses, Regular rate/rhythm Gastrointestinal: Normal bowel sounds, Soft and benign, Non-distended, No tenderness, No masses, No rebound, No guarding Musculoskeletal: No erythema, No tenderness, No warmth Integumentary: No tenderness/swelling, No erythema, No warmth, No cyanosis Neurological: Normal speech, Normal strength at 5/5 x4 extr, Normal tone, Normal affect Lymphatics: No axilla or inguinal lymphadenopathy Laboratory Data at Discharge: WBC 8.0 K/uL (4.3-10.9) D 09/07/18 05:22 Hgb 10.1 g/dL (12.0-15.0) L 09/10/18 05:40 Hct 31.0 % (36.0-45.0) L 09/10/18 05:40 Plt Count 183 K/uL (152-406) 09/07/18 05:22 PT 12.8 SECONDS (9.5-12.5) H 09/04/18 15:55 INR 1.09 09/04/18 15:55 Sodium 140 mmol/L (136-145) 09/09/18 04:48 Potassium 3.7 mmol/L (3.5-5.1) 09/09/18 04:48 BUN 11 mg/dL (7-18) 09/09/18 04:48 Creatinine 0.39 mg/dL (0.55-1.3) L 09/09/18 04:48 Glucose 103 mg/dL (74-106) 09/09/18 04:48 Magnesium 2.0 mg/dL (1.8-2.4) 09/08/18 03:43 Total Bilirubin 0.8 mg/dL (0.2-1.0) 09/07/18 05:22 AST 28 U/L (15-37) 09/07/18 05:22 ALT 21 U/L (12-78) 09/07/18 05:22 Alkaline Phosphatase 119 U/L (45-117) H 09/07/18 05:22 Home Medications: Hydrocodone/Acetaminophen [[place] 10-325 Tablet] 1 each PO Q8HP PRN 09/04/18 Omeprazole [Prilosec] 40 mg PO DAILY 09/04/18 Sertraline [Zoloft*] 25 mg PO BEDTIME 09/04/18 Docusate [Colace Cap*] 100 mg PO DAILY #30 cap 09/10/18 Lisinopril [Prinivil*] 5 mg PO DAILY #30 tab 09/10/18 New Medications: Docusate [Colace Cap*] 100 mg PO DAILY #30 cap Lisinopril [Prinivil*] 5 mg PO DAILY #30 tab Patient Discharge Instructions: 1. Patient be transferred to inpatient rehab to continue her care. Diet: AHA Activity: Fall precautions Time spent managing pt's care (in minutes): 55
[2018-09-10] MEDS ORDERED: POTASSIUM CL SA 10 MEQ TAB PO ONE (09:00)
[2018-09-10 09:06] VITALS: O2SAT 94
[2018-09-10] MEDS: CETIRIZINE HCL 5 MG TABLET PO SCH (09:06)
[2018-09-10] MEDS: DOCUSATE NA 100 MG CAP PO SCH (09:07)
[2018-09-10] MEDS: LISINOPRIL 5 MG TAB PO SCH (09:07)
[2018-09-10] MEDS: FAMOTIDINE 20 MG TAB PO SCH (09:08)
[2018-09-10] MEDS: SIMETHICONE 125 MG TAB PO PRN (09:08)
[2018-09-10 09:09] VITALS: BP 119/57
== END 2018-09-10 11:30 | DRG 470 ==
LOC: ER 15:09 → ERHOLD 18:08 → 2ND 19:32
PROVIDERS: ADMIT Family Medicine; ATTEND Internal Medicine
PROC: 0SRS0J9 Replacement of Left Hip Joint, Femoral Surface with Synthetic Substitute, Cemented, Open Approach (ICD-10-PCS; principal; 2018-09-06 10:15)
DX: S72.012A Unspecified intracapsular fracture of left femur, initial encounter for closed fracture (principal); M62.82 Rhabdomyolysis; M96.89 Other intraoperative and postprocedural complications and disorders of the musculoskeletal system; W18.30XA Fall on same level, unspecified, initial encounter; Y92.009 Unspecified place in unspecified non-institutional (private) residence as the place of occurrence of the external cause; Z98.84 Bariatric surgery status; M79.7 Fibromyalgia; R01.1 Cardiac murmur, unspecified; R03.0 Elevated blood-pressure reading, without diagnosis of hypertension; E66.9 Obesity, unspecified; Z68.31 Body mass index [BMI] 31.0-31.9, adult; G58.8 Other specified mononeuropathies
CPT/HCPCS: 36415; 51702; 71045; 72170; 80048; 80053; 80076; 81003; 81015; 82550; 82553; 83735; 83880; 84484; 85014; 85018; 85025; 85610; 87086; 87088; 88304; 88305; 88311; 93005; 93306; 96374; 96375; 97116; 97163; 97165; 97530; 99285; J0690; J1170; J1650; J2250; J2270; J2370; J2405; J2704; J3010; J3475; J7030

== ENCOUNTER 2018-09-10 11:35 | Inpatient (IN) | payer OTHER ==
--- OUTSIDE RECORDS SUMMARY | 2018-09-10 11:42 | XMS REPORT ---
:1950 [facility] Address [address] Guzmán [address] [place] [id number] Care Team Providers Name Role Phone Unavailable Unavailable Unavailable Payers Payer Name Policy Type Policy Number Effective Date Expiration Date Problems This patient has no known problems. Allergies, Adverse Reactions, Alerts This patient has no known allergies or adverse reactions. Medications This patient has no known medications.
--- OUTSIDE RECORDS SUMMARY | 2018-09-10 11:42 | XMS REPORT | Clinical Summary ---
:1950 Author Organization [facility] Address [address] [place] [address] Care Team Providers Name Role Phone Lindsey Diaz [employer] Primary Care Provider Allergies Active Allergy Reactions [...] GLUCOSAMINE-CONDROI Take by mouth 0 11/08/2017 Discontinued [id number] ORAL daily. omeprazole Take 1 30 capsule 3 12/16/2017 05/02/2018 Discontinued (PriLOSEC) 40 MG capsule (40 capsuleIndications: mg total) by Esophagitis mouth daily. vortioxetine Take 1 tablet 0 04/19/2018 Discontinued (TRINTELLIX) 10 mg by mouth tablet daily. Active Problems No known active problems Encounters Date Type Specialty Care Team Description 05/02/2018 Orders Only Gastroenterology Edie Sierra, Esophagitis FLASH DEVELOPER 05/02/2018 Telephone Gastroenterology Joyce Christopher, SERGO 04/19/2018 Office Visit Gastroenterology Willa, Status post dilatation of esophageal stricture (Primary Dx); MD Be Gastroesophageal reflux disease with esophagitis 03/01/2018 Hospital Encounter Radiology Willa, Epigastric pain MD Be 02/16/2018 Telephone Gastroenterology Edie Sierra, FLASH DEVELOPER 02/14/2018 Office Visit Gastroenterology Willa, Epigastric pain [...] Telephone Gastroenterology Edie Sierra, Esophagitis (Primary Dx) FLASH DEVELOPER 12/16/2017 Telephone Gastroenterology Edie Sierra, FLASH DEVELOPER 12/08/2017 Surgery Gastroenterology Willa EDG W/ FLUOROSCOPY AND MD Be DILATION and bx 12/08/2017 Anesthesia Event Gastroenterology Lazaro Kirk MD 12/08/2017 Hospital Encounter Gastroenterosvaldo Crouch, Benign esophageal MD Be stricture 11/25/2017 Telephone GastroenterEdie Collins, FLASH DEVELOPER 11/24/2017 Hospital Encounter Radiology Willa, Ulcerative esophagitis MD Be 11/21/2017 Orders Only Gastroenterology Arturo, Ulcerative esophagitis AL Baptiste (Primary Dx) 11/17/2017 Telephone Be Landry MD 11/15/2017 Lab Lab Be Crouch MD 11/08/2017 Office Visit Gastroenterology Willa, Iron deficiency anemia, MD Be unspecified iron deficiency anemia type (Primary Dx) after 09/09/2017 Family History Relation Name Status Comments Father [...] SCREENING 11/15/2022 11/15/2017 Implants Implanted Type Area Electrical And Electronic Assembler Device Shelf Model / Identifier Expiration Serial / Date Lot Dilator Baln Fxdwr [id number] 6-7-8mm Cre - [id number] Cardiovascular N/A: MICROVASIVE [id number] / Implanted: 12/08/2017 (Quantity not on file) Implants N/A / Dilator Baln Fxdwr [id number] 8-9-10mm Cre - [id number] Surgical N/A: BS ENDOSCOPY [id number] / Implanted: 12/08/2017 (Quantity not on file) Implants; N/A / Expanders; Extenders; Surgical Wires Dilator Baln Fxdwr [id number] 10-11-12mm Cre - [id number] Surgical N/A: BSC ENDOSCOPY [id number] / Implanted: 01/13/2018 (Quantity not on file) [...] procedure are in the results section. after 09/09/[address] Abdomen Pelvis W Contrast (03/01/2018 [...] participate in the care of your patient. [facility]-[id number] Procedure Note [facility], Radiology Results Incoming - 03/01/2018 3:00 PM [...] participate in the care of your patient. [facility]-[id number] Performing Organization Address City/[facility]/Zipcode Phone Number [facility] [address] [place] [address] Surgical pathology request (12/08/2017 4:11 PM CDT)Only the most recent of2 resultswithin the time period is included. [facility] DEPARTMENT OF PATHOLOGY AND GENOMIC MEDICINE Surgical pathology report See link below for PDF [facility] DEPARTMENT OF Lab Report PATHOLOGY AND GENOMIC MEDICINE Result status This is Final Report to [facility] DEPARTMENT OF [id number] PATHOLOGY AND GENOMIC MEDICINE Performing Organization Address [facility] Phone Number [facility] DEPARTMENT OF PATHOLOGY AND [address] [place] [address] GENOMIC MEDICINE [place] < 1 Hour (12/08/2017 2:43 PM CDT) Narrative Performed At EXAMINATION:[place] 1 HOUR RADIANT CLINICAL HISTORY:intraoperative IMPRESSION: Fluoroscopy was provided. No radiologist present.Please see procedure report for discussion of procedure, findings. [facility]-[id number] Procedure Note Interface, Radiology Results Incoming - 12/08/2017 3:12 PM CDT EXAMINATION: [place] 1 HOUR CLINICAL HISTORY: intraoperative IMPRESSION: Fluoroscopy was provided. No radiologist present. Please see procedure report for discussion of procedure, findings. [facility]-[id number] Performing Organization Address City/[facility] Phone Number [facility] [address] [place] [address] [place] Upper GI and Small Bowel Series [...] not dilated. No masses or strictures present [id number] Procedure Note Interface, Radiology Results Incoming - [...] not dilated. No masses or strictures present [id number] Performing Organization Address City/State/Zipcode Phone Number [facility] [address] [place] [address] after 09/09/2017 Insurance Payer Benefit Plan / Group Subscriber ID Type Phone Address MEDICARE MEDICARE PART A AND B xxxxxxxxxx Medicare [facility] xxxxxxxxxx Commercial INSURANCE INSURANCE (Home) [place] [address] Advance Directives Patient has advance care planning documents on file. For more information, please contact:[facility] [id number] [place] [address]
[2018-09-10] MEDS ORDERED: LACTULOSE 20 GM/30 ML UCUP PO PRN (12:40)
[2018-09-10] MEDS ORDERED: ACETAMINOPHEN 500 MG TAB PO PRN (12:43)
[2018-09-10] MEDS: HYDROCODONE/APAP 7.5/325 MG TAB PO PRN ×2 (13:06→20:04)
[2018-09-10 15:36] LABS: Urine Appearance CLEAR; Urine Bilirubin NEGATIVE (NEG); Urine Blood NEGATIVE (NEG); Urine Color DK YELLOW; Urine Glucose NEGATIVE (NEG); Urine Protein NEGATIVE (NEG); Urine Specific Gravity 1.015 (1.005-1.030)
[2018-09-10 16:12] LABS: Urine Bacteria 20-50 /HPF (<20); Urine RBC <5 /HPF (NONE SEEN)
[2018-09-10 16:13] LABS: Urine Culture Reflex Order NOT NEEDED
[2018-09-10] MEDS: ENOXAPARIN 40 MG/0.4 ML SQ SCH (16:31)
[2018-09-10] MEDS: SERTRALINE HCL 50 MG TAB PO SCH (20:03)
[2018-09-10] MEDS: PROMOD 30 ML DOSE PO SCH (20:03)
[2018-09-10] MEDS: SIMETHICONE 125 MG TAB PO PRN (20:07)
[2018-09-11 06:37] LABS: Absolute Lymphocytes (CBC) 0.9 K/uL (0.7-4.9); Absolute Monocytes 0.6 K/uL (0.1-1.3); Absolute Neutrophil 3.1 K/uL (1.8-8.0); Basophils % 0.7 % (0-1.3); Eosinophils % 5.4 % (0-4.4); Hematocrit 28.9 % (36.0-45.0); Lymphocytes % 17.6 % (15.3-44.8); MPV 8.8 fL (7.6-11.3); Monocytes % 12.3 % (3.3-12.3); RBC Red Blood Cell Count 3.38 M/uL (3.86-4.86)
[2018-09-11] MEDS: PANTOPRAZOLE 40MG TABLET PO SCH (06:39)
[2018-09-11 07:26] LABS: Albumin 2.1 g/dL (3.4-5.0); BUN Blood Urea Nitrogen 12 mg/dL (7-18); Bicarbonate 28 mmol/L (21-32); Glucose Level 99 mg/dL (74-106); Magnesium 2.2 mg/dL (1.8-2.4); Potassium 4.3 mmol/L (3.5-5.1); Prealbumin 6.2 mg/dL (20-40); Sodium Level 144 mmol/L (136-145)
[2018-09-11] MEDS: PROMOD 30 ML DOSE PO SCH ×2 (08:00→20:52)
[2018-09-11] MEDS: LISINOPRIL 5 MG TAB PO SCH (08:04)
[2018-09-11] MEDS: DOCUSATE NA 100 MG CAP PO SCH (08:04)
[2018-09-11] MEDS: HYDROCODONE/APAP 7.5/325 MG TAB PO PRN ×2 (08:04→15:20)
[2018-09-11] MEDS: FE SULF/FA/VIT B COMP & C TAB PO SCH (08:05)
[2018-09-11] MEDS: FAMOTIDINE 20 MG TAB PO SCH ×2 (08:05→20:53)
[2018-09-11] MEDS: CETIRIZINE HCL 5 MG TABLET PO SCH (08:05)
[2018-09-11] MEDS: FERROUS SULFATE 325 MG TAB PO SCH (08:05)
[2018-09-11] MEDS: TRAMADOL HCL 50 MG TAB PO PRN (11:54)
[2018-09-11] MEDS: ENOXAPARIN 40 MG/0.4 ML SQ SCH (16:58)
[2018-09-11] MEDS: SERTRALINE HCL 50 MG TAB PO SCH (20:53)
[2018-09-11] MEDS: SIMETHICONE 125 MG TAB PO PRN (22:06)
[2018-09-12] MEDS: TRAMADOL HCL 50 MG TAB PO PRN ×3 (00:48→13:31)
[2018-09-12] MEDS: PANTOPRAZOLE 40MG TABLET PO SCH (06:20)
[2018-09-12] MEDS: DOCUSATE NA 100 MG CAP PO SCH (08:05)
[2018-09-12] MEDS: FAMOTIDINE 20 MG TAB PO SCH ×2 (08:05→19:57)
[2018-09-12] MEDS: FE SULF/FA/VIT B COMP & C TAB PO SCH (08:05)
[2018-09-12] MEDS: HYDROCODONE/APAP 7.5/325 MG TAB PO PRN ×2 (08:06→15:14)
[2018-09-12] MEDS: LISINOPRIL 5 MG TAB PO SCH (08:06)
[2018-09-12] MEDS: CETIRIZINE HCL 5 MG TABLET PO SCH (08:07)
[2018-09-12] MEDS: FERROUS SULFATE 325 MG TAB PO SCH (08:07)
[2018-09-12] MEDS: PROMOD 30 ML DOSE PO SCH ×2 (08:07→19:57)
[2018-09-12] MEDS: ENOXAPARIN 40 MG/0.4 ML SQ SCH (16:28)
[2018-09-12] MEDS: MAGNESIUM OXIDE 400 MG TAB PO SCH (19:57)
[2018-09-12] MEDS: DOCUSATE NA/SENNA CONC 1 TAB PO SCH (19:59)
[2018-09-12] MEDS: SERTRALINE HCL 50 MG TAB PO SCH (20:00)
[2018-09-13] MEDS: PANTOPRAZOLE 40MG TABLET PO SCH (07:01)
[2018-09-13] MEDS: DOCUSATE NA 100 MG CAP PO SCH (08:00)
[2018-09-13] MEDS: LISINOPRIL 5 MG TAB PO SCH (08:20)
[2018-09-13] MEDS: MAGNESIUM OXIDE 400 MG TAB PO SCH ×2 (08:20→20:12)
[2018-09-13] MEDS: FE SULF/FA/VIT B COMP & C TAB PO SCH (08:20)
[2018-09-13] MEDS: BACLOFEN 10 MG TAB PO SCH (08:21)
[2018-09-13] MEDS: FAMOTIDINE 20 MG TAB PO SCH ×2 (08:21→20:12)
[2018-09-13] MEDS: CETIRIZINE HCL 5 MG TABLET PO SCH (08:21)
[2018-09-13] MEDS: HYDROCODONE/APAP 7.5/325 MG TAB PO PRN ×3 (08:22→20:24)
[2018-09-13] MEDS: FERROUS SULFATE 325 MG TAB PO SCH (08:22)
[2018-09-13] MEDS: PROMOD 30 ML DOSE PO SCH ×2 (08:23→20:12)
[2018-09-13] MEDS: TRAMADOL HCL 50 MG TAB PO PRN (10:03)
[2018-09-13] MEDS: ENOXAPARIN 40 MG/0.4 ML SQ SCH (17:03)
[2018-09-13] MEDS: SERTRALINE HCL 50 MG TAB PO SCH (20:12)
[2018-09-13] MEDS: DOCUSATE NA/SENNA CONC 1 TAB PO SCH (20:12)
[2018-09-14] MEDS: PANTOPRAZOLE 40MG TABLET PO SCH (06:25)
[2018-09-14 06:37] LABS: Absolute Lymphocytes (CBC) 1.5 K/uL (0.7-4.9); Absolute Monocytes 0.6 K/uL (0.1-1.3); Absolute Neutrophil 3.2 K/uL (1.8-8.0); Basophils % 0.7 % (0-1.3); Eosinophils % 4.1 % (0-4.4); Hematocrit 29.2 % (36.0-45.0); Lymphocytes % 26.8 % (15.3-44.8); MPV 8.3 fL (7.6-11.3); Monocytes % 10.6 % (3.3-12.3); RBC Red Blood Cell Count 3.42 M/uL (3.86-4.86)
[2018-09-14 06:56] LABS: Albumin 2.3 g/dL (3.4-5.0); BUN Blood Urea Nitrogen 12 mg/dL (7-18); Bicarbonate 30 mmol/L (21-32); Glucose Level 93 mg/dL (74-106); Potassium 4.1 mmol/L (3.5-5.1); Prealbumin 8.8 mg/dL (20-40); Sodium Level 142 mmol/L (136-145)
[2018-09-14] MEDS: HYDROCODONE/APAP 7.5/325 MG TAB PO PRN ×3 (08:44→21:12)
[2018-09-14] MEDS: FERROUS SULFATE 325 MG TAB PO SCH (08:46)
[2018-09-14] MEDS: BACLOFEN 10 MG TAB PO SCH (08:46)
[2018-09-14] MEDS: DOCUSATE NA 100 MG CAP PO SCH (08:46)
[2018-09-14] MEDS: FE SULF/FA/VIT B COMP & C TAB PO SCH (08:46)
[2018-09-14] MEDS: CETIRIZINE HCL 5 MG TABLET PO SCH (08:47)
[2018-09-14] MEDS: FAMOTIDINE 20 MG TAB PO SCH ×2 (08:47→20:33)
[2018-09-14] MEDS: MAGNESIUM OXIDE 400 MG TAB PO SCH ×2 (08:47→20:33)
[2018-09-14] MEDS: LISINOPRIL 5 MG TAB PO SCH (08:48)
[2018-09-14] MEDS: PROMOD 30 ML DOSE PO SCH ×2 (08:48→20:33)
[2018-09-14] MEDS: ENOXAPARIN 40 MG/0.4 ML SQ SCH (16:21)
[2018-09-14] MEDS: TRAMADOL HCL 50 MG TAB PO PRN (16:22)
[2018-09-14] MEDS: DOCUSATE NA/SENNA CONC 1 TAB PO SCH (20:33)
[2018-09-14] MEDS: SERTRALINE HCL 50 MG TAB PO SCH (20:33)
[2018-09-15] MEDS: PANTOPRAZOLE 40MG TABLET PO SCH (07:00)
[2018-09-15] MEDS: PROMOD 30 ML DOSE PO SCH ×2 (08:00→20:00)
[2018-09-15] MEDS: FERROUS SULFATE 325 MG TAB PO SCH (08:58)
[2018-09-15] MEDS: LISINOPRIL 5 MG TAB PO SCH (08:58)
[2018-09-15] MEDS: FAMOTIDINE 20 MG TAB PO SCH ×2 (08:58→20:00)
[2018-09-15] MEDS: FE SULF/FA/VIT B COMP & C TAB PO SCH (08:58)
[2018-09-15] MEDS: DOCUSATE NA 100 MG CAP PO SCH (08:58)
[2018-09-15] MEDS: MAGNESIUM OXIDE 400 MG TAB PO SCH ×2 (08:58→20:00)
[2018-09-15] MEDS: CETIRIZINE HCL 5 MG TABLET PO SCH (08:58)
[2018-09-15] MEDS: BACLOFEN 10 MG TAB PO SCH (08:58)
[2018-09-15] MEDS: HYDROCODONE/APAP 7.5/325 MG TAB PO PRN (08:59)
--- NOTE | 2018-09-15 10:02 | P.RH.PN ---
Estimated Length of Stay: 10 Expected Discharge Date: 09/19/18 Discharge Disposition Plan: Home Family Support: Yes Penit[facility]iary Goal: Mobility, Transfers, Self Care Vital Signs: Last Vital Signs Temp 97.2 F 09/14/18 21:32 Pulse 76 09/15/18 08:58 Resp 18 09/14/18 21:32 BP 133/63 09/15/18 08:58 Pulse Ox 98 09/14/18 21:32 Laboratory: Laboratory Last Values WBC 5.6 K/uL (4.3-10.9) D 09/14/18 06:18 RBC 3.42 M/uL (3.86-4.86) L 09/14/18 06:18 Hgb 9.6 g/dL (12.0-15.0) L 09/14/18 06:18 Hct 29.2 % (36.0-45.0) L 09/14/18 06:18 MCV 85.5 fL (80-100) 09/14/18 06:18 MCH 28.0 pg (27.0-35.0) 09/14/18 06:18 MCHC 32.8 g/dL (32.0-36.0) 09/14/18 06:18 RDW 15.0 % (12.1-15.2) 09/14/18 06:18 Plt Count 328 K/uL (152-406) D 09/14/18 06:18 MPV 8.3 fL (7.6-11.3) 09/14/18 06:18 Neutrophils % 57.8 % (41.7-73.7) 09/14/18 06:18 Lymphocytes % 26.8 % (15.3-44.8) 09/14/18 06:18 Monocytes % 10.6 % (3.3-12.3) 09/14/18 06:18 Eosinophils % 4.1 % (0-4.4) 09/14/18 06:18 Basophils % 0.7 % (0-1.3) 09/14/18 06:18 Absolute Neutrophils 3.2 K/uL (1.8-8.0) 09/14/18 06:18 Absolute Lymphocytes 1.5 K/uL (0.7-4.9) 09/14/18 06:18 Absolute Monocytes 0.6 K/uL (0.1-1.3) 09/14/18 06:18 Absolute Eosinophils 0.2 K/uL (0-0.5) 09/14/18 06:18 Absolute Basophils 0.0 K/uL (0-0.5) 09/14/18 06:18 Sodium 142 mmol/L (136-145) 09/14/18 06:18 Potassium 4.1 mmol/L (3.5-5.1) 09/14/18 06:18 Chloride 108 mmol/L (98-107) H 09/14/18 06:18 Carbon Dioxide 30 mmol/L (21-32) 09/14/18 06:18 BUN 12 mg/dL (7-18) 09/14/18 06:18 Creatinine 0.49 mg/dL (0.55-1.3) L 09/14/18 06:18 Estimated GFR > 90 mL/min (=/>90) 09/14/18 06:18 Glucose 93 mg/dL (74-106) 09/14/18 06:18 Calcium 8.5 mg/dL (8.5-10.1) 09/14/18 06:18 Magnesium 2.2 mg/dL (1.8-2.4) 09/11/18 06:23 Albumin 2.3 g/dL (3.4-5.0) L 09/14/18 06:18 Prealbumin 8.8 mg/dL (20-40) L 09/14/18 06:18 Urine Color Dk yellow 09/10/18 15:00 Urine Appearance Clear 09/10/18 15:00 Urine pH 6.0 (5.0-7.0) 09/10/18 15:00 Ur Specific [place] 1.015 (1.005-1.030) 09/10/18 15:00 Urine Ketones Negative (NEG) 09/10/18 15:00 Urine Blood Negative (NEG) 09/10/18 15:00 Urine Nitrite Negative (NEG) 09/10/18 15:00 Urine Bilirubin Negative (NEG) 09/10/18 15:00 Urine Urobilinogen 4.0 mg/dL (0.2-1.0) H 09/10/18 15:00 Ur Leukocyte Esterase 2+ (NEG) H 09/10/18 15:00 Urine RBC <5 /HPF (NONE SEEN) 09/10/18 15:00 Urine WBC 10-20 /HPF (<5) H 09/10/18 15:00 Ur Squamous Epith Cells 5-10 /HPF (NONE SEEN) H 09/10/18 15:00 Urine Bacteria 20-50 /HPF (<20) H 09/10/18 15:00 Urine Culture Reflexed Not needed 09/10/18 15:00 Urine Glucose Negative (NEG) 09/10/18 15:00 Urine Total Protein Negative (NEG) 09/10/18 15:00 Weight: 190 lb 7 oz Wound Present: No Closed Surgical Incision Present: Yes Negative Pressure Wound Therapy Present: No Physician Update: Labs have been reviewed Hgb is low at 9.6 and prealbumin is low at 8.8. She ambulated 750' with minimum to contact guard assistance. She is able to follow hip recautions. Pain Issues: [place] 7.5/325mg Q6H PRN. Tramadol 50mg TID PRN Functional Improvement: pt is demonstrating improved performance with functional activity and tolerance to ambulation. pt does continue to require skilled PT services to permit independence with her mobility as she will be the primary caregiver for her at this time. Functional Improvement Occupational Therapy: pt can benifit further therapy to address pt's overall weakness for adl tasks increasing pt's FMC/GMC and coordination for adl tasks. Cont to increase pt's safety and energy conservation , by educating on using the A/E for lB dressing due pt having hip precautions. Cont to increase pt's static standing balance for functional transfers. Cont with the POC and the goals by the supervising OTR. Summary: Patient's care plan and shelter goals have been reviewed and revised as necessary. Please see the Rehabilitation Signature page for all necessary signatures.
[2018-09-15] MEDS: TRAMADOL HCL 50 MG TAB PO PRN (13:18)
[2018-09-15] MEDS: ENOXAPARIN 40 MG/0.4 ML SQ SCH (17:03)
[2018-09-15] MEDS: DOCUSATE NA/SENNA CONC 1 TAB PO SCH (21:00)
[2018-09-15] MEDS: SERTRALINE HCL 50 MG TAB PO SCH (21:00)
[2018-09-16] MEDS: TRAMADOL HCL 50 MG TAB PO PRN (00:58)
[2018-09-16] MEDS: PANTOPRAZOLE 40MG TABLET PO SCH (06:59)
[2018-09-16] MEDS: PROMOD 30 ML DOSE PO SCH ×2 (08:00→20:00)
[2018-09-16] MEDS: FERROUS SULFATE 325 MG TAB PO SCH (08:56)
[2018-09-16] MEDS: MAGNESIUM OXIDE 400 MG TAB PO SCH ×2 (08:56→20:43)
[2018-09-16] MEDS: FAMOTIDINE 20 MG TAB PO SCH ×2 (08:56→20:43)
[2018-09-16] MEDS: HYDROCODONE/APAP 7.5/325 MG TAB PO PRN ×2 (08:56→20:43)
[2018-09-16] MEDS: FE SULF/FA/VIT B COMP & C TAB PO SCH (08:56)
[2018-09-16] MEDS: LISINOPRIL 5 MG TAB PO SCH (08:56)
[2018-09-16] MEDS: DOCUSATE NA 100 MG CAP PO SCH (08:56)
[2018-09-16] MEDS: CETIRIZINE HCL 5 MG TABLET PO SCH (08:56)
[2018-09-16] MEDS: BACLOFEN 10 MG TAB PO SCH (08:56)
[2018-09-16] MEDS: SIMETHICONE 125 MG TAB PO PRN (14:19)
[2018-09-16] MEDS: ENOXAPARIN 40 MG/0.4 ML SQ SCH (17:28)
[2018-09-16] MEDS: SERTRALINE HCL 50 MG TAB PO SCH (20:43)
[2018-09-16] MEDS: DOCUSATE NA/SENNA CONC 1 TAB PO SCH (20:44)
[2018-09-17] MEDS: PROMOD 30 ML DOSE PO SCH ×2 (08:00→20:36)
[2018-09-17] MEDS: PANTOPRAZOLE 40MG TABLET PO SCH (08:02)
[2018-09-17] MEDS: FAMOTIDINE 20 MG TAB PO SCH ×2 (09:30→20:35)
[2018-09-17] MEDS: LISINOPRIL 5 MG TAB PO SCH (09:30)
[2018-09-17] MEDS: MAGNESIUM OXIDE 400 MG TAB PO SCH ×2 (12:15→20:35)
[2018-09-17] MEDS: TRAMADOL HCL 50 MG TAB PO PRN (12:15)
[2018-09-17] MEDS: DOCUSATE NA 100 MG CAP PO SCH (12:15)
[2018-09-17] MEDS: FE SULF/FA/VIT B COMP & C TAB PO SCH (12:16)
[2018-09-17] MEDS: BACLOFEN 10 MG TAB PO SCH (12:16)
[2018-09-17] MEDS: FERROUS SULFATE 325 MG TAB PO SCH (12:16)
[2018-09-17] MEDS: CETIRIZINE HCL 5 MG TABLET PO SCH (12:17)
[2018-09-17] MEDS: ENOXAPARIN 40 MG/0.4 ML SQ SCH (16:47)
[2018-09-17] MEDS: DOCUSATE NA/SENNA CONC 1 TAB PO SCH (20:35)
[2018-09-17] MEDS: SERTRALINE HCL 50 MG TAB PO SCH (20:35)
[2018-09-18] MEDS: PANTOPRAZOLE 40MG TABLET PO SCH (07:24)
[2018-09-18] MEDS: PROMOD 30 ML DOSE PO SCH ×2 (08:00→20:35)
[2018-09-18] MEDS: HYDROCODONE/APAP 7.5/325 MG TAB PO PRN ×2 (08:49→18:15)
[2018-09-18] MEDS: DOCUSATE NA 100 MG CAP PO SCH (08:49)
[2018-09-18] MEDS: CETIRIZINE HCL 5 MG TABLET PO SCH (08:50)
[2018-09-18] MEDS: FE SULF/FA/VIT B COMP & C TAB PO SCH (08:50)
[2018-09-18] MEDS: MAGNESIUM OXIDE 400 MG TAB PO SCH ×2 (08:50→20:34)
[2018-09-18] MEDS: BACLOFEN 10 MG TAB PO SCH (08:50)
[2018-09-18] MEDS: LISINOPRIL 5 MG TAB PO SCH (08:50)
[2018-09-18] MEDS: FAMOTIDINE 20 MG TAB PO SCH ×2 (08:50→20:34)
[2018-09-18] MEDS: FERROUS SULFATE 325 MG TAB PO SCH (08:50)
[2018-09-18] MEDS: TRAMADOL HCL 50 MG TAB PO PRN (12:42)
[2018-09-18] MEDS: ENOXAPARIN 40 MG/0.4 ML SQ SCH (16:25)
[2018-09-18] MEDS: SERTRALINE HCL 50 MG TAB PO SCH (20:34)
[2018-09-18] MEDS: DOCUSATE NA/SENNA CONC 1 TAB PO SCH (20:34)
[2018-09-19] MEDS: PANTOPRAZOLE 40MG TABLET PO SCH (05:17)
[2018-09-19 07:10] VITALS: BP 126/60; TEMP 97.9
[2018-09-19] MEDS: PROMOD 30 ML DOSE PO SCH (08:00)
[2018-09-19] MEDS: FAMOTIDINE 20 MG TAB PO SCH (08:42)
[2018-09-19] MEDS: DOCUSATE NA 100 MG CAP PO SCH (08:42)
[2018-09-19] MEDS: MAGNESIUM OXIDE 400 MG TAB PO SCH (08:42)
[2018-09-19] MEDS: FERROUS SULFATE 325 MG TAB PO SCH (08:43)
[2018-09-19] MEDS: BACLOFEN 10 MG TAB PO SCH (08:43)
[2018-09-19] MEDS: CETIRIZINE HCL 5 MG TABLET PO SCH (08:43)
[2018-09-19] MEDS: LISINOPRIL 5 MG TAB PO SCH (08:44)
[2018-09-19] MEDS: FE SULF/FA/VIT B COMP & C TAB PO SCH (08:44)
[2018-09-19] MEDS ORDERED: LIDOCAINE 2%-JELLY **30 ML TUBE TOP ONE (11:35)
[2018-09-19] MEDS: TRAMADOL HCL 50 MG TAB PO PRN (14:55)
[2018-09-19] MEDS: ENOXAPARIN 40 MG/0.4 ML SQ SCH (16:55)
== END 2018-09-19 17:20 | disposition home health service (06) | DRG 561 ==
LOC: 5TH 11:35
PROVIDERS: ADMIT Psychiatry & Neurology Neurology with Special Qualifications in Child Neurology; ATTEND Psychiatry & Neurology Neurology with Special Qualifications in Child Neurology
DX: S72.012D Unspecified intracapsular fracture of left femur, subsequent encounter for closed fracture with routine healing (principal); M79.7 Fibromyalgia; M19.90 Unspecified osteoarthritis, unspecified site
CPT/HCPCS: 36415; 80048; 81001; 82040; 83735; 84134; 85025; 87086; 87088; 97110; 97112; 97116; 97150; 97162; 97167; 97530; 97542; J1650